=== PATIENT | female | born 1940 | race Asian ===

== ENCOUNTER 2017-06-26 08:13 | Emergency (ER) | payer OTHER ==
[~2017-06-26] VITALS: Ht 147.3 cm; Wt 52.0 kg
[~2017-06-26 08:13] MED LIST: FAMO-96 PO; GLIP-95 PO; HYDR-3498 PO; LEVO250T9 PO; LOSA25TA5 PO; METF850T PO; OMEP20CA9 PO; OMEP40CA6 PO; ONDA4TAB35 PO; ONDA4TAB8 PO; PIOG45TA6 PO; TRAM-40 PO
[2017-06-26 08:19] VITALS: Ht 147.3 cm; Wt 52.0 kg
[2017-06-26] MEDS ORDERED: SOD CHLORIDE 0.9% 500 ML IV STA (08:31)
[2017-06-26] MEDS ORDERED: OCTREOTIDE 50 MCG INJ SC STA (08:39)
[2017-06-26] MEDS ORDERED: DEXTROSE 50% 50 ML SYRINGE IV STA (08:39)
[2017-06-26] MEDS ORDERED: ONDANSETRON 4 MG INJ IV STA (08:55)
--- NOTE | 2017-06-26 09:09 | RADRPT ---
PROCEDURE: XR Chest. CLINICAL INDICATION: Altered Mental Status. Dyspnea. TECHNIQUE: Single frontal chest x-ray. COMPARISON: 02/07/2016 FINDINGS: The lungs are clear of acute infiltrates, edema, effusions, or masses. There is elevation of the rig ht hemidiaphragm. Calcific atherosclerosis of the aorta is present.. The cardiomediastinal silhouet te is unremarkable. There is an old healed fracture of the left clavicle. Cholecystectomy clips and internal biliary stent are again noted. Pneumobilia is also seen.. IMPRESSION: No acute cardiopulmonary disease. Elevated right hemidiaphragm. Status post cholecystectomy with internal biliary stent and pneumobilia. RPTAT: JJ .Gm Bingham MD, MD Date Time Electronically viewed and signed by .Gm Bingham MD, on 06/26/2017 09:09 .L/
[2017-06-26 09:23] LABS: BASOPHILS % 0.3 % (0.0-2.0); EOSINOPHILS % 0.4 % (0.0-7.0); HEMATOCRIT 41.7 % (37.0-47.0); HEMOGLOBIN 13.8 g/dl (12.0-16.0); LYMPHOCYTES # 1.9 10^3/ul (0.8-2.9); LYMPHOCYTES % 23.3 % (15.0-51.0); MEAN CORPUSCULAR HEMOGLOBIN 30.4 pg (29.0-33.0); MEAN CORPUSCULAR HGB CONC 33.1 g/dl (32.0-37.0); MEAN CORPUSCULAR VOLUME 91.9 fl (82.0-101.0); MONOCYTE # 0.4 10^3/ul (0.3-0.9); MONOCYTES % 5.5 % (0.0-11.0); NEUTROPHIL # 5.6 10^3/ul (1.6-7.5); NEUTROPHILS % 70.2 % (39.0-77.0); PLATELET COUNT 302 10^3/UL (140-415); RED BLOOD COUNT 4.54 10^6/ul (4.20-5.40)
[2017-06-26 09:28] LABS: ADD UMIC YES; UR ASCORBIC ACID NEGATIVE (NEGATIVE); UR BILIRUBIN (Dip) NEGATIVE (NEGATIVE); UR BLOOD (Dip) 1+ mg/dL (NEGATIVE); UR CLARITY CLEAR (CLEAR); UR COLOR STRAW (YELLOW); UR GLUCOSE (Dip) 3+ mg/dL (NEGATIVE); UR KETONES (Dip) NEGATIVE (NEGATIVE); UR LEUKOCYTE ESTERASE (Dip) TRACE Leu/ul (NEGATIVE); UR NITRITE (Dip) NEGATIVE (NEGATIVE); UR RBC 0 /HPF (0-5); UR SPECIFIC GRAVITY (Dip) 1.003 (1.003-1.030); UR TOTAL PROTEIN (Dip) NEGATIVE (NEGATIVE); UR UROBILINOGEN (Dip) NEGATIVE (NEGATIVE)
[2017-06-26 09:37] LABS: INR 0.87; PROTIME 11.8 Sec (12.2-14.2); PT RATIO 0.9
[2017-06-26 09:38] LABS: PARTIAL THROMBOPLASTIN TIME 30.9 Sec (25.0-35.0)
[2017-06-26 09:40] LABS: ALANINE AMINOTRANSFERASE 23 IU/L (13-69); ALBUMIN 4.7 g/dl (3.3-4.9); ALBUMIN/GLOBULIN RATIO 1.17; ALKALINE PHOSPHATASE 50 IU/L (42-121); ASPARTATE AMINO TRANSFERASE 27 IU/L (15-46); BILIRUBIN,INDIRECT 0.2 mg/dl (0-1.1); BILIRUBIN,TOTAL 0.2 mg/dl (0.2-1.3); BLOOD UREA NITROGEN 21 mg/dl (7-20); CALCIUM 9.6 mg/dl (8.4-10.2); CARBON DIOXIDE 27 mmol/L (21-31); CHLORIDE 101 mmol/L (97-110); CREATININE 0.81 mg/dl (0.44-1.00); GLUCOSE 66 mg/dl (70-220); SODIUM 147 mmol/L (135-144); TOTAL PROTEIN 8.7 g/dl (6.1-8.1)
[2017-06-26 09:51] LABS: ANION GAP 23 (8-16); POTASSIUM 4.2 mmol/L (3.5-5.1)
[2017-06-26 09:53] LABS: TROPONIN-I < 0.012 ng/ml (0.00-0.12)
--- NOTE | 2017-06-26 10:11 | RADRPT ---
PROCEDURE: CT Abdomen and Pelvis without intravenous contrast. CLINICAL INDICATION: Abdominal pain and vomiting. . TECHNIQUE: CT scan of the abdomen and pelvis without intravenous contrast was performed on a multi -slice CT scanner. Coronal and sagittal reformatted images were obtained from the axial source image s. Images were reviewed on a high-resolution PACS workstation. Total DLP = 296.8 mGy-cm. CTDIvol = 5.3 mGy. One or more of the following dose reduction techniques were used: Automated exposure control. Adjustment of the mA and/or kV according to patient size. Use of iterative reconstruction technique. COMPARISON: 05/05/2016 FINDINGS: CT abdomen and pelvis: The lung bases are clear. Calcified subcarinal lymph node is seen. The heart size is normal in size. The liver is normal in size and density. There is intra and extrahepatic biliary dilatation with pneumobilia unchanged. There is an internal biliary stent in place extending from the common bile d uct into the second portion of the duodenum. There is no definite common bile duct stone or pancreat ic mass is seen although sludge is seen at the distal common bile duct. The spleen is normal in siz e and homogeneous in density. The pancreas as visualized is normal. The gallbladder has been lauryn chuy. The adrenal glands are normal. The kidneys are symmetrically unremarkable. No urolithiasis, obstructive uropathy, or solid mass lesion is seen. There are bilateral renal cysts measuring up to 5.5 cm in the left kidney unchanged. The stomach is partially collapsed, but is grossly unremarkable. The small bowels are unremarkable. The colon and rectum are normal. There are a few scattered colonic diverticula. The appendix is nor mal. There is no evidence of appendicitis or diverticulitis. The uterus has been removed.. The blad kerline is normal. There is no abdominal or pelvic adenopathy, free fluid, free air, mass or mesenteric inflammation. The aorta is normal in caliber with calcific atherosclerosis . The osseous structures showing degen erative enthesopathy of the spine. There are no osteolytic or osteoblastic lesions identified.. The soft tissues are within normal limits. Lack of IV and oral contrast limits sensitivity of exam. IMPRESSION: 1. Intra and extrahepatic biliary dilatation with pneumobilia and internal biliary stent in place u nchanged since prior exam. 2. Bilateral renal cysts. 3. Colonic diverticulosis without diverticulitis. 4. Status post cholecystectomy and hysterectomy. 5. Otherwise unremarkable noncontrast CT abdomen and pelvis without acute pathology identified. RPTAT: JJ .Gm Bingham MD, Date Time Electronically viewed and signed by .Gm Bingham MD, on 06/26/2017 10:10 .L/
--- NOTE | 2017-06-26 10:12 | RADRPT ---
PROCEDURE: CT Brain without contrast. CLINICAL INDICATION: Altered Mental Status TECHNIQUE: A CT of the brain was performed on a [employer] 64-slice CT scanner utilizing axial imaging from the skull base through the vertex without IV contrast. Multiplanar reformatted images were made. Images were reviewed on a PACS workstation. The CTDIvol is 43.58 mGy and the DLP is 630 .2 mGycm. COMPARISON: CT brain 02/07/[address] brain 02/03/2014 FINDINGS: There is no acute intracranial hemorrhage, midline shift, or mass effect. No abnormal extra-axial f luid collection is seen. The carballo-white matter differentiation appears well preserved. There is stable mild to moderate diffuse cerebral volume loss, likely age-related. The previously seen focal encephalomalacia likely related to prior infarct in the anterior limb of t he left internal capsule is identified, but is less conspicuous on the current study as compared to prior studies. Scattered low attenuation in the periventricular deep white matter is nonspecific, but there compati ble with chronic small vessel ischemic white matter disease, unchanged. Bilateral basal ganglia calc ifications are unchanged and nonspecific. A tiny posterior inferior right cerebellar hemisphere chronic lacunar infarct is unchanged. Bilateral aphakia is again noted. The orbits, paranasal sinus, and mastoid air cells are partially i fritz. The imaged portions are otherwise grossly unremarkable. Intracranial calcific atherosclerotic disease is noted in the internal carotid arteries bilaterally. No acute fracture or suspicious osseous lesion is identified. IMPRESSION: 1. No evidence of acute intracranial pathology. 2. Stable tiny chronic lacunar infarct in the right posterior inferior cerebellar hemisphere. 3. Focal encephalomalacia in the anterior limb of the left internal capsule, less conspicuous as com pared to prior studies. 4. Stable mild to moderate diffuse cerebral volume loss, likely age-related. 5. Stable findings suggestive of mild chronic small vessel ischemic white matter disease. RPTAT: PP Physician Kofi Date Time Electronically viewed and signed by Physician Kofi on 06/26/2017 10:12 RC/
[2017-06-26] MEDS ORDERED: LANT3I SC (10:16)
[2017-06-26] MEDS ORDERED: ONDA4TAB14 PO (11:53)
--- NOTE | 2017-06-26 12:00 | ERA ---
ER Documentation Chief Complaint Date/Time DATE: 06/26/17 TIME: 11:56 Chief Complaint feels weak , dizziness , low blood glucose , abd pain , vomiting HPI This is a 76-year-old female diabetic who presents the emergency room with fatigue dizziness and vomiting. The patient has multiple complaints usually history is provided by daughter. The patient describes mild headache, abdominal pain that is cramping with associated nonbloody nonbilious emesis. Accu-Chek at home was in the 60s and she was given something to drink. No recent fevers or chills. The patient has had bladder infections in the past she denies any dysuria urgency or frequency. ROS All systems reviewed and are negative except as per history of present illness. Medications Home Meds Active Scripts Ondansetron (Ondansetron Odt) 4 Mg Tab.rapdis, 4 MG PO Q6H Y for NAUSEA AND/OR VOMITING, #30 TAB Prov:JOSE SALINAS MD 06/26/17 Reported Medications Insulin Glargine* (Lantus*) 100 Unit/Ml Soln, 14 UNIT SC DAILY, #1 VIAL 06/26/17 Glipizide* (Glipizide*) 10 Mg Tablet, 10 MG PO AC BREAKFAST BEDTIME, TAB 01/14/15 Omeprazole* (Prilosec*) 20 Mg Capsule.dr, 20 MG PO DAILY, CAP 10/17/14 Losartan Potassium* (Losartan Potassium*) 25 Mg Tablet, 25 MG PO DAILY, TAB 10/17/14 Pioglitazone Hcl* (Actos*) 45 Mg Tablet, 45 MG PO DAILY, TAB 10/17/14 Metformin Hcl* (Metformin Hcl*) 850 Mg Tablet, 850 MG PO BID, TAB 10/17/14 Discontinued Scripts Ondansetron Hcl* (Zofran*) 4 Mg Tablet, 4 MG PO Q8H Y for NAUSEA AND/OR VOMITING , #12 TAB Prov:MIRELA CASSIDY DO 05/05/16 Famotidine* (Pepcid*) 20 Mg Tablet, 20 MG PO BID for 14 Days, TAB Prov:MIRELA CASSIDY DO 05/05/16 Tramadol Hcl* (Ultram*) 50 Mg Tablet, 50 MG PO Q6H Y for PAIN, #14 TAB Prov:PITER ROBERTS DO 02/20/16 Omeprazole* (Omeprazole*) 40 Mg Capsule.dr, 40 MG PO DAILY, #30 CAP Prov:PITER ROBERTS DO 02/20/16 Ondansetron Hcl* (Zofran* ODT) 4 mg -ODT Tab.disper, 4 MG PO Q6 Y for NAUSEA AND /OR VOMITING, #10 TAB Prov:PITER ROBERTS DO 02/20/16 Hydrocodone Bit-Acetaminophen* (Martin*) 5-325 Mg Tab, 1 TAB PO q6h Y for PAIN, # 10 TAB Prov:PATEL OLSEN BRIM FLEXER 02/09/16 Levofloxacin* (Levofloxacin*) 250 Mg Tablet, 250 MG PO DAILY for 3 Days, TAB Prov:PATEL OLSEN BRIM FLEXER 02/09/16 Allergies Allergies: Coded Allergies: No Known Allergy (Unverified , 06/26/17) PMhx/Soc History of Surgery: Yes (cholecystectomy, hysterectomy) Anesthesia Reaction: No Hx Neurological Disorder: No Hx Respiratory Disorders: No Hx Cardiac Disorders: No Hx Psychiatric Problems: No Hx Miscellaneous Medical Probl: Yes (dm) Hx Alcohol Use: No Hx Substance Use: No Hx Tobacco Use: No Smoking Status: Never smoker FmHx Family History: diabetes Physical Exam Vitals Vital Signs Date Time Temp Pulse Resp B/P Pulse Ox O2 Delivery O2 Flow Rate FiO2 06/26/17 08:19 97.8 87 18 149/67 99 Physical Exam General: Thin female, no significant distress Head: Normocephalic, atraumatic. Eyes: Pupils equally reactive, EOM intact ENT: Moist mucous membranes Neck: Supple, no lymphadenopathy Respiratory: Lungs clear bilaterally, no distress Cardiovascular: RRR, no murmurs, rubs, or gallops Abdominal: Soft, non-tender, non-distended, no peritoneal signs : Deferred MSK: No edema, no unilateral swelling, 5/5 strength Neurologic: Alert and oriented, moving all extremities, normal speech, no focal weakness, no cerebellar signs Skin: No rash Psych: Normal mood Result Diagram: 06/26/17 0900 06/26/17 0900 Results 24 hrs Laboratory Tests Test 06/26/17 08:31 06/26/17 09:00 06/26/17 09:21 06/26/17 10:27 Bedside Glucose 69mg/dL 201mg/dL 175mg/dL White Blood Count 8.010^3/ul Red Blood Count 4.5410^6/ul Hemoglobin 13.8g/dl Hematocrit 41.7% Mean Corpuscular Volume 91.9fl Mean Corpuscular Hemoglobin 30.4pg Mean Corpuscular Hemoglobin Concent 33.1g/dl Red Cell Distribution Width 13.0% Platelet Count 98274^3/UL Mean Platelet Volume 10.0fl Neutrophils % 70.2% Lymphocytes % 23.3% Monocytes % 5.5% Eosinophils % 0.4% Basophils % 0.3% Nucleated Red Blood Cells % 0.0/100WBC Neutrophils # 5.610^3/ul Lymphocytes # 1.910^3/ul Monocytes # 0.410^3/ul Eosinophils # 0.010^3/ul Basophils # 0.010^3/ul Nucleated Red Blood Cells # 0.010^3/ul Prothrombin Time 11.8Sec Prothrombin Time Ratio 0.9 INR International Normalized Ratio 0.87 Activated Partial Thromboplast Time 30.9Sec Urine Color STRAW Urine Clarity CLEAR Urine pH 6.0 Urine Specific [place] 1.003 Urine Ketones NEGATIVEmg/dL Urine Nitrite NEGATIVEmg/dL Urine Bilirubin NEGATIVEmg/dL Urine Urobilinogen NEGATIVEmg/dL Urine Leukocyte Esterase TRACELeu/ul Urine Microscopic RBC 0/HPF Urine Microscopic WBC 2/HPF Urine Hemoglobin 1+mg/dL Urine Glucose 3+mg/dL Urine Total Protein NEGATIVEmg/dl Sodium Level 147mmol/L Potassium Level 4.2mmol/L Chloride Level 101mmol/L Carbon Dioxide Level 27mmol/L Anion Gap 23 Blood Urea Nitrogen 21mg/dl Creatinine 0.81mg/dl Glucose Level 66mg/dl Calcium Level 9.6mg/dl Total Bilirubin 0.2mg/dl Direct Bilirubin 0.00mg/dl Indirect Bilirubin 0.2mg/dl Aspartate Amino Transf (AST/SGOT) 27IU/L Alanine Aminotransferase (ALT/SGPT) 23IU/L Alkaline Phosphatase 50IU/L Troponin I < 0.012ng/ml Total Protein 8.7g/dl Albumin 4.7g/dl Globulin 4.00g/dl Albumin/Globulin Ratio 1.17 Test 06/26/17 11:29 Bedside Glucose 102mg/dL Current Medications Medications (Trade) Dose Ordered Sig/Krystal Route PRN Reason Start Time Stop Time Status Last Admin Dose Admin Sodium Chloride (NS) 500 ml @ 500 mls/hr Q1H STAT IV 06/26/17 08:31 06/26/17 09:30 DC 06/26/17 08:42 Dextrose (D50w Syringe) 50 ml ONCE STAT IV 06/26/17 08:39 06/26/17 08:43 DC 06/26/17 08:53 Octreotide Acetate (Sandostatin) 50 mcg ONCE STAT SC 06/26/17 08:39 06/26/17 08:43 DC 06/26/17 10:16 Ondansetron HCl (Zofran Inj) 4 mg ONCE STAT IV 06/26/17 08:55 06/26/17 08:57 DC 06/26/17 09:05 Procedures/MDM EKG, MONITORS, & DIAGNOSTIC IMAGING: EKG: I reviewed and interpreted a 12-lead EKG. Rhythm: Normal sinus rhythm Ectopy: None Intervals: No abnormalities ST segments: No elevations or depressions T waves: No contiguous inversions CTB IMPRESSION: 1. No evidence of acute intracranial pathology. 2. Stable tiny chronic lacunar infarct in the right posterior inferior cerebellar hemisphere. 3. Focal encephalomalacia in the anterior limb of the left internal capsule, less conspicuous as compared to prior studies. 4. Stable mild to moderate diffuse cerebral volume loss, likely age-related. 5. Stable findings suggestive of mild chronic small vessel ischemic white matter disease. RPTAT: PP CT a/p IMPRESSION: 1. Intra and extrahepatic biliary dilatation with pneumobilia and internal biliary stent in place unchanged since prior exam. 2. Bilateral renal cysts. 3. Colonic diverticulosis without diverticulitis. 4. Status post cholecystectomy and hysterectomy. 5. Otherwise unremarkable noncontrast CT abdomen and pelvis without acute pathology identified. RPTAT: PAMELA 'Chest x-ray: I reviewed and interpreted a 1 view of the chest Mediastinum: No enlargement Cardiac silhouette: No cardiomegaly Airspace: Clear lung waters bilaterally without evidence of pneumothorax Bones: No evidence of fracture LAB INTERPRETATION: The patient has no leukocytosis,, stable serial glucose values MEDICAL DECISION MAKING: The patient presents with hypoglycemia, multiple complaints including headache abdominal pain and nausea and vomiting. Unclear etiology, the patient does take sulfonylurea and Lantus and took the doses this morning. For this reason she requires close observation in the emergency room. Given her age I believe laboratory testing and CT imaging of the head and abdomen and pelvis would be most reasonable. ER COURSE: The patient continues to be well-appearing in the emergency department. The patient was given a complex carbohydrate meal she was given octreotide. The patient's Accu-Chek initially was 201 and after an amp and has trended down to 100 but has been stable for at least 3 hours. The patient was given a p.o. challenge and tolerated this well. She was observed with serial abdominal exams that are again benign. I discussed inpatient versus outpatient management. The patient and family feel comfortable going home with return precautions discussed and understood. The daughter can check the glucose at home and was advised that if is low to call [phone] and return to the emergency department. I kept the patient and/or family informed of laboratory and diagnostic imaging results throughout the emergency room course. DISPOSITION PLAN: We discussed follow up with the patient's primary care doctor within 24 to 48 hours as needed. We also discussed return to the emergency room for worsening symptoms or worsening condition. Outpatient referral: [None required] Discharge Medications: Zofran Departure Diagnosis: Primary Impression: Nausea and vomiting Qualified Code: R11.2 - Nausea and vomiting, intractability of vomiting not specified, unspecified vomiting type Additional Impressions: Hyperglycemia Generalized abdominal pain Condition: Stable Patient Instructions: Nausea and Vomiting-Adult Additional Instructions: Call your primary care doctor TOMORROW for an appointment during the next 2-3 days.See the doctor sooner or return here if your condition worsens before your appointment time. JOSE SALINAS MD Jun 26, 2017 12:00
[2017-06-26 12:52] VITALS: BP 123/68; PULSE 74; RESP 16
== END 2017-06-26 13:05 | disposition home or self-care (01) ==
LOC: E/R 08:13
DX: R11.2 Nausea with vomiting, unspecified (principal); E11.65 Type 2 diabetes mellitus with hyperglycemia; R10.84 Generalized abdominal pain; R41.82 Altered mental status, unspecified; Z79.4 Long term (current) use of insulin; Z79.84 Long term (current) use of oral hypoglycemic drugs
CPT/HCPCS: 36415; 70450; 71010; 74176; 80053; 81001; 82962; 84484; 85025; 85610; 85730; 93005; 96372; 96374; 96375; J2354; J2405; J7040; Z7502; Z7610

== ENCOUNTER 2017-07-31 13:16 | Emergency (ER) | payer OTHER ==
[~2017-07-31] VITALS: Ht 157.5 cm; Wt 55.0 kg
[~2017-07-31 13:16] MED LIST changes: -FAMO-96 PO; -HYDR-3498 PO; +LANT3I SC; -LEVO250T9 PO; -OMEP40CA6 PO; +ONDA4TAB14 PO; -ONDA4TAB35 PO; -ONDA4TAB8 PO; -TRAM-40 PO
[2017-07-31 13:20] VITALS: Ht 157.5 cm; Wt 55.0 kg
[2017-07-31] MEDS ORDERED: SOD CHLORIDE 0.9% 1,000 ML IV STA (16:56)
[2017-07-31] MEDS ORDERED: ONDANSETRON 4 MG INJ IV STA (16:56)
--- NOTE | 2017-07-31 17:13 | RADRPT ---
PROCEDURE: XR Chest. CLINICAL INDICATION: Abdominal pain and weakness TECHNIQUE: Single frontal view of the chest was obtained COMPARISON: 06/26/2017 FINDINGS: No pleural effusion or pneumothorax. No consolidation. Staple cardiomediastinal silhouette. No acute osseous abnormality. Fracture deformity of the left clavicle. IMPRESSION: No acute cardiopulmonary disease. RPTAT: EE Jannet Nuñez Physician Date Time Electronically viewed and signed by Jannet Nuñez Physician on 07/31/2017 17:13 /
[2017-07-31] MEDS ORDERED: ASPI-664 PO (17:15)
[2017-07-31] MEDS ORDERED: METF1000 PO (17:17)
[2017-07-31] MEDS ORDERED: ATOR10TA65 PO (17:22)
[2017-07-31 17:40] LABS: BASOPHILS % 0.3 % (0.0-2.0); EOSINOPHILS # 0.1 10^3/ul (0.0-0.5); EOSINOPHILS % 0.9 % (0.0-7.0); HEMATOCRIT 41.2 % (37.0-47.0); HEMOGLOBIN 13.1 g/dl (12.0-16.0); LYMPHOCYTES # 1.9 10^3/ul (0.8-2.9); LYMPHOCYTES % 29.3 % (15.0-51.0); MEAN CORPUSCULAR HEMOGLOBIN 29.6 pg (29.0-33.0); MEAN CORPUSCULAR HGB CONC 31.8 g/dl (32.0-37.0); MEAN PLATELET VOLUME 9.5 fl (7.4-10.4); MONOCYTE # 0.4 10^3/ul (0.3-0.9); MONOCYTES % 5.6 % (0.0-11.0); NEUTROPHILS % 63.6 % (39.0-77.0); PLATELET COUNT 311 10^3/UL (140-415); RED BLOOD COUNT 4.43 10^6/ul (4.20-5.40); RED CELL DISTRIBUTION WIDTH 13.9 % (11.5-14.5); WHITE BLOOD COUNT 6.6 10^3/ul (4.8-10.8)
[2017-07-31 17:57] LABS: ALANINE AMINOTRANSFERASE 24 IU/L (13-69); ALBUMIN 4.2 g/dl (3.3-4.9); ALBUMIN/GLOBULIN RATIO 1.02; ALKALINE PHOSPHATASE 43 IU/L (42-121); ANION GAP 20 (8-16); ASPARTATE AMINO TRANSFERASE 24 IU/L (15-46); BILIRUBIN,INDIRECT 0.3 mg/dl (0-1.1); BILIRUBIN,TOTAL 0.3 mg/dl (0.2-1.3); BLOOD UREA NITROGEN 25 mg/dl (7-20); CALCIUM 9.6 mg/dl (8.4-10.2); CARBON DIOXIDE 27 mmol/L (21-31); CHLORIDE 101 mmol/L (97-110); GLUCOSE 90 mg/dl (70-220); POTASSIUM 5.1 mmol/L (3.5-5.1); SODIUM 143 mmol/L (135-144); TOTAL PROTEIN 8.3 g/dl (6.1-8.1)
[2017-07-31 18:17] LABS: TROPONIN-I < 0.012 ng/ml (0.00-0.12)
[2017-07-31] MEDS ORDERED: SOD CHLORIDE 0.9% 1,000 ML IV ONE (18:30)
[2017-07-31 19:46] LABS: ADD UMIC YES; UR ASCORBIC ACID 40 mg/dL (NEGATIVE); UR BILIRUBIN (Dip) NEGATIVE (NEGATIVE); UR BLOOD (Dip) NEGATIVE (NEGATIVE); UR CLARITY CLEAR (CLEAR); UR COLOR YELLOW (YELLOW); UR GLUCOSE (Dip) NEGATIVE (NEGATIVE); UR KETONES (Dip) NEGATIVE (NEGATIVE); UR LEUKOCYTE ESTERASE (Dip) TRACE Leu/ul (NEGATIVE); UR NITRITE (Dip) NEGATIVE (NEGATIVE); UR RBC 3 /HPF (0-5); UR TOTAL PROTEIN (Dip) NEGATIVE (NEGATIVE); UR UROBILINOGEN (Dip) NEGATIVE (NEGATIVE)
--- NOTE | 2017-07-31 19:50 | RADRPT ---
PROCEDURE: XR Abdomen. CLINICAL INDICATION: Epigastric pain. TECHNIQUE: AP abdomen x-ray. COMPARISON: CT examination of the abdomen and pelvis dated 06/26/2017. FINDINGS: Biliary stent is seen over the right abdomen. The proximal stent is likely present in the distal co mmon bile duct in the distal stent is likely present within the duodenum. These findings are compati ble with CT examination the abdomen and pelvis dated 06/26/2017. Stent position cannot be further e valuated on the present series. Pneumobilia again seen, with the air distended common bile duct medina uring up to about 25 mm. The bowel gas pattern is normal. There is no evidence of obstruction. There are no abnormal calcific ations overlying the urinary tracts. The osseus structures are unremarkable. IMPRESSION: 1. Pneumobilia and biliary stent again seen, similar in appearance to CT examination dated 06/26/20 17. 2. Otherwise, nonobstructive and nonspecific bowel gas pattern. RPTAT: UU Physician Lloyd Date Time Electronically viewed and signed by Physician Lloyd on 07/31/2017 19:50 RS/
--- NOTE | 2017-07-31 21:50 | ERD ---
ER Documentation Chief Complaint Date/Time DATE: 07/31/17 TIME: 21:43 Chief Complaint Complains of weakness x 4 days HPI 76-year-old female comes emergency room with her daughter for 3 days of increasing mild generalized weakness with decreased appetite. She is unaware of any dysuria and has no chest pain shortness of breath nausea vomiting fever or chills. No trauma ROS All systems reviewed and are negative except as per history of present illness. Medications Home Meds Reported Medications Atorvastatin Calcium (Atorvastatin Calcium) 10 Mg Tablet, 10 MG PO QHS, #30 TAB 07/31/17 Metformin Hcl* (Metformin Hcl*) 1,000 Mg Tablet, 1000 MG PO WITH BREAKFAST DINNE , #60 TAB 07/31/17 Aspirin* (Aspirin* EC) 81 Mg Tablet.dr, 81 MG PO DAILY, TAB 07/31/17 Insulin Glargine* (Lantus*) 100 Unit/Ml Soln, 14 UNIT SC DAILY, #1 VIAL 06/26/17 Glipizide* (Glipizide*) 10 Mg Tablet, 10 MG PO AC BREAKFAST BEDTIME, TAB 01/14/15 Omeprazole* (Prilosec*) 20 Mg Capsule.dr, 20 MG PO DAILY, CAP 10/17/14 Pioglitazone Hcl* (Actos*) 45 Mg Tablet, 45 MG PO DAILY, TAB 10/17/14 Discontinued Reported Medications Losartan Potassium* (Losartan Potassium*) 25 Mg Tablet, 25 MG PO DAILY, TAB 10/17/14 Metformin Hcl* (Metformin Hcl*) 850 Mg Tablet, 850 MG PO BID, TAB 10/17/14 Discontinued Scripts Ondansetron (Ondansetron Odt) 4 Mg Tab.rapdis, 4 MG PO Q6H Y for NAUSEA AND/OR VOMITING, #30 TAB Prov:JOSE SALINAS MD 06/26/17 Allergies Allergies: Coded Allergies: No Known Allergy (Unverified , 07/31/17) PMhx/Soc History of Surgery: Yes (cholecystectomy, hysterectomy) Anesthesia Reaction: No Hx Neurological Disorder: No Hx Respiratory Disorders: No Hx Cardiac Disorders: No Hx Psychiatric Problems: No Hx Miscellaneous Medical Probl: Yes (dm) Hx Alcohol Use: No Hx Substance Use: No Hx Tobacco Use: No Smoking Status: Never smoker Physical Exam Vitals Vital Signs Date Time Temp Pulse Resp B/P Pulse Ox O2 Delivery O2 Flow Rate FiO2 8/31/17 21:19 98.0 70 20 132/70 98 07/31/17 18:00 98.0 68 20 110/77 98 07/31/17 13:20 98.7 83 20 108/62 98 Physical Exam Const: [] No distress Head: Atraumatic Eyes: Normal Conjunctiva ENT: Normal External Ears, Nose and Mouth. Neck: Full range of motion..~ No meningismus. Resp: Clear to auscultation bilaterally Cardio: Regular rate and rhythm, no murmurs Abd: Soft, non tender, non distended. Normal bowel sounds Skin: No petechiae or rashes Back: No midline or flank tenderness Ext: No cyanosis, or edema Neur: Awake and alertAnd oriented 3, no focal deficits Psych: Normal Mood and Affect Result Diagram: 07/31/17 1725 07/31/17 1725 Results 24 hrs Laboratory Tests Test 07/31/17 17:25 07/31/17 19:35 White Blood Count 6.610^3/ul Red Blood Count 4.4310^6/ul Hemoglobin 13.1g/dl Hematocrit 41.2% Mean Corpuscular Volume 93.0fl Mean Corpuscular Hemoglobin 29.6pg Mean Corpuscular Hemoglobin Concent 31.8g/dl Red Cell Distribution Width 13.9% Platelet Count 13299^3/UL Mean Platelet Volume 9.5fl Neutrophils % 63.6% Lymphocytes % 29.3% Monocytes % 5.6% Eosinophils % 0.9% Basophils % 0.3% Nucleated Red Blood Cells % 0.0/100WBC Neutrophils # (Manual) 4.210^3/ul Lymphocytes # 1.910^3/ul Monocytes # 0.410^3/ul Eosinophils # 0.110^3/ul Basophils # 0.010^3/ul Nucleated Red Blood Cells # 0.010^3/ul Sodium Level 143mmol/L Potassium Level 5.1mmol/L Chloride Level 101mmol/L Carbon Dioxide Level 27mmol/L Anion Gap 20 Blood Urea Nitrogen 25mg/dl Creatinine 0.90mg/dl Glucose Level 90mg/dl Lactic Acid Level 3.6mmol/L Calcium Level 9.6mg/dl Total Bilirubin 0.3mg/dl Direct Bilirubin 0.00mg/dl Indirect Bilirubin 0.3mg/dl Aspartate Amino Transf (AST/SGOT) 24IU/L Alanine Aminotransferase (ALT/SGPT) 24IU/L Alkaline Phosphatase 43IU/L Troponin I < 0.012ng/ml Total Protein 8.3g/dl Albumin 4.2g/dl Globulin 4.10g/dl Albumin/Globulin Ratio 1.02 Urine Color YELLOW Urine Clarity CLEAR Urine pH 5.0 Urine Specific [place] 1.020 Urine Ketones NEGATIVEmg/dL Urine Nitrite NEGATIVEmg/dL Urine Bilirubin NEGATIVEmg/dL Urine Urobilinogen NEGATIVEmg/dL Urine Leukocyte Esterase TRACELeu/ul Urine Microscopic RBC 3/HPF Urine Microscopic WBC 10/HPF Urine Hemoglobin NEGATIVEmg/dL Urine Glucose NEGATIVEmg/dL Urine Total Protein NEGATIVEmg/dl Current Medications Medications (Trade) Dose Ordered Sig/Krystal Route PRN Reason Start Time Stop Time Status Last Admin Dose Admin Sodium Chloride (NS) 1,000 ml @ 1,000 mls/hr Q1H STAT IV 07/31/17 16:56 07/31/17 17:55 DC 07/31/17 17:25 Ondansetron HCl 4 mg 4 mg ONCE STAT IV 07/31/17 16:56 07/31/17 16:58 DC 07/31/17 17:25 Sodium Chloride 1,000 ml @ 1,000 mls/hr Q1H ONCE IV 07/31/17 18:30 07/31/17 19:29 DC 07/31/17 20:15 Cefepime HCl (Maxipime 1gm/50 ml (Pmx)) 50 ml @ 100 mls/hr ONCE ONCE IVPB 07/31/17 22:00 07/31/17 22:29 Procedures/MDM Weakness and dehydration is likely secondary to UTI. Elevated lactic acid without elevated creatinine. Patient was hydrated 2 L of normal saline and given a gram of cefepime as urinalysis positive for leukocyte esterase and has 10 white blood cells from a cath specimen. Urine culture was taken to confirm this. No signs of cardiac dysfunction or electrolyte abnormalities.Daughter in patient for her to go home this evening. Able to able to care for patient at home. Patient's vital signs are stable respect this decision. I am going to discharge with Levaquin for 3 days as well as Zofran ODT. EKG interpretation: Normal sinus rhythm rate of 69, normal axis, no ST or T- wave changes concerning for acute ischemia. Normal EKG Chest x-ray interpretation: See no acute process, no infiltrates, no pneumothorax, no fractures, no pulmonary edema X-ray abdomen: I see no acute process. Pneumobilia similar to prior exam, no obstruction, no free air, no fractures. Departure Diagnosis: Primary Impression: Urinary tract infection Additional Impression: Dehydration Condition: Stable CECI LLOYD DO Jul 31, 2017 21:50
[2017-07-31] MEDS ORDERED: CEFEPIME 1GM/50 ML (PMX) 50 ML IVPB ONE (22:00)
[2017-07-31] MEDS ORDERED: LEVO500T72 PO (22:01)
[2017-07-31] MEDS ORDERED: ONDA4TAB11 PO (22:01)
[2017-07-31 22:34] VITALS: BP 118/68; PULSE 64; RESP 20; TEMP 97.3
== END 2017-07-31 22:37 | disposition home or self-care (01) ==
LOC: E/R 13:16
DX: N39.0 Urinary tract infection, site not specified (principal); E86.0 Dehydration; E11.9 Type 2 diabetes mellitus without complications; Z79.4 Long term (current) use of insulin; Z79.82 Long term (current) use of aspirin; Z79.84 Long term (current) use of oral hypoglycemic drugs
CPT/HCPCS: 36415; 71010; 74010; 80053; 81001; 83605; 84484; 85025; 87086; 93005; 96374; 96375; J7030; Z7502

== ENCOUNTER 2017-08-07 16:40 | Observation (INO) | payer OTHER ==
[~2017-08-07] VITALS: Ht 152.4 cm; Wt 55.0 kg
[~2017-08-07 16:40] MED LIST changes: +ASPI-664 PO; +ATOR10TA65 PO; +LEVO500T72 PO; -LOSA25TA5 PO; +METF1000 PO; -METF850T PO; +ONDA4TAB11 PO; -ONDA4TAB14 PO
[2017-08-07] MEDS ORDERED: ONDANSETRON 4 MG INJ IV STA (19:20)
[2017-08-07] MEDS ORDERED: FAMOTIDINE 20 MG INJ IV STA (19:20)
[2017-08-07] MEDS ORDERED: SOD CHLORIDE 0.9% 500 ML IV STA (19:20)
--- NOTE | 2017-08-07 19:32 | ERD ---
ER Documentation Chief Complaint Date/Time DATE: 08/07/17 TIME: 19:30 Chief Complaint VOMITING,ABDOMINAL PAIN,POOR APPETITE X 3DAYS HPI Patient is a 76-year-old female recently discharged from the hospital with UTI and on antibiotics who presents to the ER with gradual onset, intermittent, moderate nonbloody nonbilious vomiting for 2-3 days. Her family reports that she has not been eating well since she left the hospital and has had constipation. She has had numerous episodes of vomiting in the last 2-3 days. She denies fever, headache, abdominal pain. ROS All systems reviewed and are negative except as per history of present illness. Medications Home Meds Reported Medications Pioglitazone Hcl* (Pioglitazone Hcl*) 15 Mg Tablet, 15 MG PO DAILY, TAB 08/07/17 Glipizide* (Glipizide*) 5 Mg Tablet, 5 MG PO AC BREAKFAST DINNER, TAB 08/07/17 Metoprolol Succinate* (Toprol XL*) 25 Mg Tab.sr.24h, 25 MG PO DAILY, #30 TAB 08/07/17 [Basaglar 100/Ml ] No Conflict Check, 14 UNITS SQ DAILY KWIKPEN 08/07/17 Atorvastatin Calcium (Atorvastatin Calcium) 10 Mg Tablet, 10 MG PO QHS, #30 TAB 07/31/17 Metformin Hcl* (Metformin Hcl*) 1,000 Mg Tablet, 1000 MG PO WITH BREAKFAST DINNE , #60 TAB 07/31/17 Aspirin* (Aspirin* EC) 81 Mg Tablet.dr, 81 MG PO DAILY, TAB 07/31/17 Omeprazole* (Prilosec*) 20 Mg Capsule.dr, 20 MG PO DAILY for NEEDED, CAP 10/17/14 Discontinued Reported Medications Insulin Glargine* (Lantus*) 100 Unit/Ml Soln, 14 UNIT SC DAILY, #1 VIAL 06/26/17 Glipizide* (Glipizide*) 10 Mg Tablet, 10 MG PO AC BREAKFAST BEDTIME, TAB 01/14/15 Pioglitazone Hcl* (Actos*) 45 Mg Tablet, 45 MG PO DAILY, TAB 10/17/14 Losartan Potassium* (Losartan Potassium*) 25 Mg Tablet, 25 MG PO DAILY, TAB 10/17/14 Metformin Hcl* (Metformin Hcl*) 850 Mg Tablet, 850 MG PO BID, TAB 10/17/14 Discontinued Scripts Ondansetron (Zofran Odt) 4 Mg Tab.rapdis, 4 MG PO Q6, #10 Prov:CECI LLOYD DO 07/31/17 Levofloxacin* (Levaquin*) 500 Mg Tablet, 500 MG PO DAILY for 7 Days, TAB Prov:CECI LLOYD DO 07/31/17 Ondansetron (Ondansetron Odt) 4 Mg Tab.rapdis, 4 MG PO Q6H Y for NAUSEA AND/OR VOMITING, #30 TAB Prov:JOSE SALINAS MD 06/26/17 Allergies Allergies: Coded Allergies: No Known Allergy (Unverified , 08/07/17) PMhx/Soc Past medical history: Hypertension, diabetes Past surgical history: Hysterectomy, cholecystectomy Social history: Denies tobacco or alcohol History of Surgery: Yes (cholecystectomy, hysterectomy) Anesthesia Reaction: No Hx Neurological Disorder: No Hx Respiratory Disorders: No Hx Cardiac Disorders: No Hx Psychiatric Problems: No Hx Miscellaneous Medical Probl: Yes (dm) Hx Alcohol Use: No Hx Substance Use: No Hx Tobacco Use: No FmHx Family History: diabetes, No coronary disease Physical Exam Vitals Vital Signs Date Time Temp Pulse Resp B/P Pulse Ox O2 Delivery O2 Flow Rate FiO2 08/07/17 21:34 98.6 80 17 110/57 95 Room Air 08/07/17 19:39 98.6 80 17 105/57 100 Room Air 08/07/17 16:46 98.5 86 18 110/58 98 Physical Exam Const: Alert, no acute distress Head: Atraumatic Eyes: Normal Conjunctiva, No pallor, no icterus ENT: Normal External Ears, Nose and Mouth.Mucous membranes moist Neck: Full range of motion..~ No meningismus. Resp: Clear to auscultation bilaterally, No wheezes, no rales Cardio: Regular rate and rhythm, no murmurs Abd: Soft, non tender, non distended. Skin: No petechiae or rashes Back: No midline or flank tenderness Ext: No cyanosis, or edema Neur: Awake and alert, Cranial nerves II through XII intact bilaterally, strength and sensation full in 4 extremities. Psych: Normal Mood and Affect Result Diagram: 08/07/17 1930 08/07/172105 Results 24 hrs Laboratory Tests Test 08/07/17 19:30 9/7/17 20:58 08/07/17 21:06 08/07/17 21:16 White Blood Count 7.410^3/ul Red Blood Count 4.1910^6/ul Hemoglobin 12.7g/dl Hematocrit 38.8% Mean Corpuscular Volume 92.6fl Mean Corpuscular Hemoglobin 30.3pg Mean Corpuscular Hemoglobin Concent 32.7g/dl Red Cell Distribution Width 13.7% Platelet Count 61026^3/UL Mean Platelet Volume 9.6fl Neutrophils % 61.8% Lymphocytes % 30.2% Monocytes % 6.7% Eosinophils % 0.8% Basophils % 0.1% Nucleated Red Blood Cells % 0.0/100WBC Neutrophils # (Manual) 4.510^3/ul Lymphocytes # 2.210^3/ul Monocytes # 0.510^3/ul Eosinophils # 0.110^3/ul Basophils # 0.010^3/ul Nucleated Red Blood Cells # 0.010^3/ul Urine Color KIERSTEN Urine Clarity SLIGHTLY CLOUDY Urine pH 5.0 Urine Specific [place] 1.029 Urine Ketones NEGATIVEmg/dL Urine Nitrite NEGATIVEmg/dL Urine Bilirubin NEGATIVEmg/dL Urine Urobilinogen 1+mg/dL Urine Leukocyte Esterase TRACELeu/ul Urine Microscopic RBC 1/HPF Urine Microscopic WBC 10/HPF Urine Squamous Epithelial Cells FEW/HPF Urine Mucus MANY/HPF Urine Hemoglobin NEGATIVEmg/dL Urine Glucose NEGATIVEmg/dL Urine Total Protein 1+mg/dl Bedside Glucose 26mg/dL 137mg/dL Sodium Level 135mmol/L Potassium Level 3.7mmol/L Chloride Level 103mmol/L Carbon Dioxide Level 25mmol/L Anion Gap 11 Blood Urea Nitrogen 23mg/dl Creatinine 0.94mg/dl Glucose Level 170mg/dl Calcium Level 8.4mg/dl Test 08/07/17 21:58 Bedside Glucose 162mg/dL Current Medications Medications (Trade) Dose Ordered Sig/Krystal Route PRN Reason Start Time Stop Time Status Last Admin Dose Admin Sodium Chloride (NS) 500 ml @ 500 mls/hr Q1H STAT IV 08/07/17 19:20 08/07/17 20:19 DC 08/07/17 19:32 Ondansetron HCl (Zofran Inj) 4 mg ONCE STAT IV 08/07/17 19:20 08/07/17 19:21 DC 08/07/17 19:33 Famotidine (Pepcid Iv) 20 mg ONCE STAT IV 08/07/17 19:20 08/07/17 19:21 DC 08/07/17 19:33 Octreotide Acetate (Sandostatin) 100 mcg ONCE ONCE SC 08/07/17 21:00 08/07/17 21:00 DC Octreotide Acetate (Sandostatin) 50 mcg ONCE ONCE IV 08/07/17 21:00 08/07/17 21:01 DC 08/07/17 21:25 Dextrose (D50w Syringe) 50 ml STK-MED ONCE .ROUTE 08/07/17 20:55 08/07/17 20:56 DC Dextrose (D50w Syringe) 50 ml ONCE ONCE IV 08/07/17 21:00 08/07/17 21:23 DC 08/07/17 21:25 Sodium Chloride 1710 ml 1,710 ml BOLUS OVER 2 HOURS ONCE IV* 08/07/17 22:10 08/07/17 22:15 DC Ceftriaxone Sodium (Rocephin) 50 ml @ 100 mls/hr ONCE ONCE IVPB 08/07/17 22:15 08/07/17 22:44 DC Ondansetron HCl (Zofran Inj) 4 mg ER BRIDGE PRN IV NAUSEA AND/OR VOMITING 08/07/17 23:00 08/08/17 22:59 Acetaminophen (Tylenol Tab) 650 mg ER BRIDGE PRN PO MILD PAIN/FEVER 08/07/17 23:00 08/08/17 22:59 Procedures/MDM MDM: Patient is a 76-year-old female who presents to the ER with vomiting for 2 days. She was found to have a blood sugar in the 20s. She was given IV dextrose, and was also given IV octreotide due to being on a sulfonylurea. The patient is also on insulin. He is able to tolerate oral intake, and her glucose stabilized. Additional workup revealed a possible UTI. She had a benign abdominal exam and no signs of central vomiting such as neurologic deficit or headache. Blood and urine cultures were sent and a lactate will be checked. She has low diastolic blood pressure but normal map and systolic blood pressure. She was given IV antibiotics and fluids. She will be admitted to observation for monitoring of glucose until stabilized and for further infectious workup. Departure Diagnosis: Primary Impression: Hypoglycemia Additional Impressions: Urinary tract infection Urinary tract infection type: site unspecified Hematuria presence: without hematuria Qualified Code: N39.0 - Urinary tract infection without hematuria, site unspecified Vomiting Vomiting type: unspecified Vomiting Intractability: non-intractable Nausea presence: with nausea Qualified Code: R11.2 - Non-intractable vomiting with nausea, unspecified vomiting type Condition: CESAR Heath MD Aug 07, 2017 19:32
[2017-08-07] MEDS ORDERED: BASAGLAR SQ (19:52)
[2017-08-07] MEDS ORDERED: METO25TA7 PO (19:52)
[2017-08-07] MEDS ORDERED: [UNRECOGNIZED DRUG - OTHER] SQ (19:52)
[2017-08-07] MEDS ORDERED: PIOG15TA21 PO (19:53)
[2017-08-07] MEDS ORDERED: GLIP5TAB13 PO (19:53)
[2017-08-07 20:09] LABS: BASOPHILS % 0.1 % (0.0-2.0); EOSINOPHILS # 0.1 10^3/ul (0.0-0.5); EOSINOPHILS % 0.8 % (0.0-7.0); HEMATOCRIT 38.8 % (37.0-47.0); HEMOGLOBIN 12.7 g/dl (12.0-16.0); LYMPHOCYTES # 2.2 10^3/ul (0.8-2.9); LYMPHOCYTES % 30.2 % (15.0-51.0); MEAN CORPUSCULAR HEMOGLOBIN 30.3 pg (29.0-33.0); MEAN CORPUSCULAR HGB CONC 32.7 g/dl (32.0-37.0); MEAN CORPUSCULAR VOLUME 92.6 fl (82.0-101.0); MEAN PLATELET VOLUME 9.6 fl (7.4-10.4); MONOCYTE # 0.5 10^3/ul (0.3-0.9); MONOCYTES % 6.7 % (0.0-11.0); NEUTROPHILS % 61.8 % (39.0-77.0); PLATELET COUNT 309 10^3/UL (140-415); RED BLOOD COUNT 4.19 10^6/ul (4.20-5.40); RED CELL DISTRIBUTION WIDTH 13.7 % (11.5-14.5); WHITE BLOOD COUNT 7.4 10^3/ul (4.8-10.8)
[2017-08-07 20:19] LABS: ADD UMIC YES; UR ASCORBIC ACID NEGATIVE (NEGATIVE); UR BILIRUBIN (Dip) NEGATIVE (NEGATIVE); UR BLOOD (Dip) NEGATIVE (NEGATIVE); UR CLARITY SLIGHTLY CLOUDY (CLEAR); UR COLOR AMBER (YELLOW); UR GLUCOSE (Dip) NEGATIVE (NEGATIVE); UR KETONES (Dip) NEGATIVE (NEGATIVE); UR LEUKOCYTE ESTERASE (Dip) TRACE Leu/ul (NEGATIVE); UR MUCUS MANY /HPF (NONE SEEN); UR NITRITE (Dip) NEGATIVE (NEGATIVE); UR RBC 1 /HPF (0-5); UR SPECIFIC GRAVITY (Dip) 1.029 (1.003-1.030); UR SQUAMOUS EPITHELIAL CELL FEW /HPF (FEW); UR TOTAL PROTEIN (Dip) 1+ mg/dl (NEGATIVE); UR UROBILINOGEN (Dip) 1+ mg/dL (NEGATIVE)
[2017-08-07] MEDS ORDERED: DEXTROSE 50% 50 ML SYRINGE ONE (20:55)
[2017-08-07] MEDS ORDERED: DEXTROSE 50% 50 ML SYRINGE IV ONE (21:00)
[2017-08-07] MEDS ORDERED: OCTREOTIDE 50 MCG INJ SC ONE (21:00)
[2017-08-07] MEDS ORDERED: OCTREOTIDE 50 MCG INJ IV ONE (21:00)
--- NOTE | 2017-08-07 21:18 | RADRPT ---
PROCEDURE: Abdominal radiograph CLINICAL INDICATION: Abdominal Pain. COMPARISON: Radiograph from 07/20/2015. TECHNIQUE: AP view of the abdomen. FINDINGS: The visualized lung bases are clear. Cholecystectomy. Common biliary duct stent. No free air. No distended loops of bowel. No fluid levels. There is a nonobstructive bowel pattern. No suspicious calcifications. Mild degenerative changes of the lower lumbar spine. IMPRESSION: No bowel obstruction identified. RPTAT: [facility] Physician Shamir Date Time Electronically viewed and signed by Physician Shamir on 08/07/2017 21:18 LG/
[2017-08-07 21:34] VITALS: TEMP 98.6
[2017-08-07 21:45] LABS: CALCIUM 8.4 mg/dl (8.4-10.2); CREATININE 0.94 mg/dl (0.44-1.00); POTASSIUM 3.7 mmol/L (3.5-5.1)
[2017-08-07] MEDS ORDERED: SODIUM CHLORIDE 0.9% 1L BAG IV* ONE (22:10)
[2017-08-07] MEDS ORDERED: CEFTRIAXONE 1 GM/50 ML (PMX) 50 ML IVPB ONE (22:15)
[2017-08-07] MEDS ORDERED: ACETAMINOPHEN 325 MG TAB PO PRN (23:00)
[2017-08-07] MEDS ORDERED: ONDANSETRON 4 MG INJ IV PRN (23:00)
[2017-08-08] VITALS (11 sets, daily range): BP systolic 101–130; BP diastolic 51–62; PULSE 59–71; RESP 16–20; Ht 152.4 cm; Wt 55.0 kg
[2017-08-08] MEDS ORDERED: SOD CHLORIDE 0.9% 1,000 ML IV SCH (01:11)
[2017-08-08] MEDS ORDERED: GLUCOSE GEL 15 GRAM TUBE PO PRN ×2 (01:30)
[2017-08-08] MEDS: FAMOTIDINE 20 MG INJ IV SCH ×2 (01:30→09:08)
[2017-08-08] MEDS ORDERED: morphine 2 MG INJ IV PRN (01:30)
[2017-08-08] MEDS ORDERED: NACL 0.9% 3 ML SYG IV SCH (01:30)
[2017-08-08] MEDS ORDERED: DOCUSATE SODIUM 100 MG CAP PO PRN (01:30)
[2017-08-08] MEDS ORDERED: ONDANSETRON 4 MG INJ IV PRN (01:30)
[2017-08-08] MEDS ORDERED: DEXTROSE 50% 50 ML SYRINGE IV PRN ×2 (01:30)
[2017-08-08] MEDS ORDERED: BISACODYL (EC) 5 MG TAB PO PRN (01:30)
[2017-08-08] MEDS ORDERED: GLUCAGON 1 MG INJ IM PRN (01:30)
[2017-08-08] MEDS ORDERED: GLUCOSE GEL 15 GRAM TUBE BUCCAL PRN (01:30)
[2017-08-08] MEDS ORDERED: ACETAMINOPHEN 325 MG TAB PO PRN (01:30)
[2017-08-08] MEDS: ACCU-CHEK XX SCH (02:00)
[2017-08-08] MEDS ORDERED: SOD CHLORIDE 0.9% 1,000 ML IV ONE ×2 (03:09→07:00)
[2017-08-08] MEDS: INSULIN ASPART [NOVOLOG] 3 ML PEN SC SCH ×5 (05:00→20:59)
--- NOTE | 2017-08-08 06:50 | HP ---
Date/Time of Note Date/Time of Note DATE: 08/08/17 TIME: 06:47 Assessment/Plan VTE Prophylaxis VTE Prophylaxis Intervention: SCD's Lines/Catheters IV [facility]from [facility] Assessment/Plan Chief Complaint/Hosp Course This is a 76-year-old female being admitted to the telemetry floor for: #1 symptomatic hypoglycemia: Likely multifactorial secondary to underlying urinary tract infection and decreased appetite and continued medication use. Patient received Sandostatin in the ED. Currently will put her on a D5 water as she has poor appetite at this time. Will continue to monitor blood sugars. Hold home diabetes medication at this time. #2 lactic acidosis: Again likely multifactorial secondary to urinary tract infection, dehydration from poor appetite, and metformin. Will provide IV fluid hydration at this time will hold metformin. Provide antibiotics for urinary tract infection. Will trend lactate. #3 abdominal pain: This likely could be secondary to patient's generalized illness as well as UTI however in the setting of her age and being a female as well as lactic acidosis I will also check cardiac enzymes. There is no rectal bleeding at this time. #3 dehydration: Patient received normal saline boluses in the ED will continue normal saline bolus as well as D5 water secondary to #1. #4 urinary tract infection: The current time will treat with ceftriaxone. Will await urine culture #5 DVT GI prophylaxis: SCDs, acid pito Further treatment strategy will be implemented as per the clinical course Problems: HPI/ROS Admit Date/Time Admit Date/Time Aug 07, 2017 at 22:47 Hx of Present Illness Chief complaint: Vomiting 2-3 days Patient is a 76-year-old female recently discharged from the hospital with UTI and on antibiotics who presents to the ER with gradual onset, intermittent, moderate nonbloody nonbilious vomiting for 2-3 days. Her family reports that she has not been eating well since she left the hospital and has had constipation. She has had numerous episodes of vomiting in the last 2-3 days. She denied fever headache and abdominal pain in the ED. However upon my examination patient did report that she had some abdominal pain. Patient is also poor historian Allergies: NKDA Medications: See GALE COTE Const: As per HPI Eyes : No pain discharge or redness or change in visual acuity ENT: No pain, sore throat, congestion, congestion, dysphagia or discharge Respiratory: No shortness of breath, cough, sputum, wheezing, or pleuritic pain Cardiovascular: No chest pain, palpitation, PND, or edema GI : As per HPI Genitourinary: No dysuria, hematuria, flank pain , discharge or CVA tenderness Musculoskeletal: No joint pain, back pain, neck pain, restricted range of motion in neck or joints Skin: No rash, bruising or hives Neuro: No headache, dizziness, syncope, seizure, focal weakness Endocrine: No polyuria, polydipsia, temperature intolerance Psych: No hallucination, depression, anxiety or suicidal ideation PMH/Family/Social Past Medical History Diabetes mellitus, hypertension, hyperlipidemia Past Surgical History Hysterectomy, cholecystectomy Past Surgical Hx: other Family History Significant Family History: no pertinent family hx Social History Smoking Status: Never smoker Drug Use: none Exam/Review of Systems Vital Signs Vitals Vital Signs Date Time Temp Pulse Resp B/P Pulse Ox O2 Delivery O2 Flow Rate FiO2 08/08/17 05:03 97.8 76 16 130/62 98 08/08/17 00:13 Room Air Exam Exam General: Patient is lying in bed, lethargic however she is alert and awake HEENT: Atraumatic, normocephalic. The pupils are equal, round and reactive. Extraocular motor are intact Neck: Supple with full range of motion. No rigidity or meningismus Chest: Nontender Lungs: Clear to auscultation bilaterally no crackles rales or wheezing Heart: Normal S1-S2, Regular rhythm and rate. No murmur, S3, or S4 Abdomen: Soft, tenderness to palpation over the epigastric region and lower abdominal region, normal bowel sounds Extremities: Normal to inspection, no edema no cyanosis Neurologic: Normal mental status, speech normal, cranial nerves II through XII are intact, motor and sensory are intact, Additional Comments PROCEDURE: Abdominal radiograph CLINICAL INDICATION: Abdominal Pain. COMPARISON: Radiograph from 07/20/2015. TECHNIQUE: AP view of the abdomen. FINDINGS: The visualized lung bases are clear. Cholecystectomy. Common biliary duct stent. No free air. No distended loops of bowel. No fluid levels. There is a nonobstructive bowel pattern. No suspicious calcifications. Mild degenerative changes of the lower lumbar spine. IMPRESSION: No bowel obstruction identified. RPTAT: [facility] Shabnam Valdez Physician Date Time Electronically viewed and signed by Shabnam Valdez Physician on 08/07/2017 21: 18 LG/ CC: CESAR GARCIA MD Labs Result Diagram: 08/07/17192908/07/172105 Medications Medications Current Medications Ondansetron HCl (Zofran Inj) 4 mg Q6H PRN IV NAUSEA AND/OR VOMITING; Start 08/08 at 01:30 Acetaminophen (Tylenol Tab) 650 mg Q6H PRN PO PAIN LEVEL 1-3 OR FEVER; Start at 01:30 Morphine Sulfate (morphine) 2 mg Q4H PRN IV PAIN LEVEL 7-10; Start 08/08/17 at 01:30 Docusate Sodium (Colace) 100 mg Q12H PRN PO CONSTIPATION; Start 08/08/17 at 01: 30 Bisacodyl (Dulcolax) 5 mg DAILY PRN PO CONSTIPATION; Start 08/08/17 at 01:30 Famotidine (Pepcid Iv) 20 mg DAILY IV Last administered on 08/08/17 01:30; Admin Dose 20 MG; Start 08/08/17 at 01:30 Diagnostic Test (Pha) (Accu-Chek) 1 ea 02 XX Last administered on 08/08/17 02: 00; Admin Dose 1 EA; Start 08/08/17 at 02:00 Insulin Aspart (Novolog Insulin Pen) NOVOLOG *MILD* ALGORI... Q4 SC ; Start 08/08 at 05:00 Miscellaneous Information 1 ea NOTE XX ; Start 08/08/17 at 01:30 Glucose (Glutose) 15 gm Q15M PRN PO DECREASED GLUCOSE; Start 08/08/17 at 01:30 Glucose (Glutose) 22.5 gm Q15M PRN PO DECREASED GLUCOSE; Start 08/08/17 at 01:30 Dextrose (D50w Syringe) 25 ml Q15M PRN IV DECREASED GLUCOSE; Start 08/08/17 at 01:30 Dextrose (D50w Syringe) 50 ml Q15M PRN IV DECREASED GLUCOSE; Start 08/08/17 at 01:30 Glucagon (Glucagen) 1 mg Q15M PRN IM DECREASED GLUCOSE; Start 08/08/17 at 01:30 Glucose 15 gm 15 gm Q15M PRN BUCCAL DECREASED GLUCOSE; Start 08/08/17 at 01:30 Sodium Chloride 1,000 ml @ 75 mls/hr [id number] ONCE IV Last administered on t 03:25; Admin Dose 75 MLS/HR; Start 08/08/17 at 03:09; Stop 08/08/17 at 16:28 Dextrose/Sodium Chloride (D5-NS) 1,000 ml @ 70 mls/hr [id number] IV ; Start at 13:30 CARLEY RANKIN Aug 08, 2017 06:50
--- NOTE | 2017-08-08 12:21 | PN ---
Date/Time of Note Date/Time of Note DATE: 08/08/17 TIME: 12:21 Assessment/Plan VTE Prophylaxis VTE Prophylaxis Intervention: SCD's Lines/Catheters IV Catheter Type (from Nrsg): Peripheral IV Assessment/Plan Assessment/Plan #1 symptomatic hypoglycemia: Likely multifactorial secondary to underlying urinary tract infection and decreased appetite and continued medication use. Patient received Sandostatin in the ED. Currently will put her on a D5 water as she has poor appetite at this time. Will continue to monitor blood sugars. Hold home diabetes medication at this time. #2 lactic acidosis: Again likely multifactorial secondary to urinary tract infection, dehydration from poor appetite, and metformin. Will provide IV fluid hydration at this time will hold metformin. Provide antibiotics for urinary tract infection. Will trend lactate. #3 abdominal pain: This likely could be secondary to patient's generalized illness as well as UTI however in the setting of her age and being a female as well as lactic acidosis I will also check cardiac enzymes. There is no rectal bleeding at this time. #3 dehydration: Patient received normal saline boluses in the ED will continue normal saline bolus as well as D5 water secondary to #1. #4 urinary tract infection: The current time will treat with ceftriaxone. Will await urine culture #5 DVT GI prophylaxis: SCDs, acid pito Exam/Review of Systems Vital Signs Vitals Vital Signs Date Time Temp Pulse Resp B/P Pulse Ox O2 Delivery O2 Flow Rate FiO2 08/08/17 11:29 98.0 63 20 114/59 95 08/08/17 00:13 Room Air Results Result Diagram: 08/07/17 19308/07/176 Results 24 hrs Laboratory Tests Test 08/07/17 19:30 08/07/17 20:58 08/07/17 21:06 08/07/17 21:16 White Blood Count 7.4 Red Blood Count 4.19 L Hemoglobin 12.7 Hematocrit 38.8 Mean Corpuscular Volume 92.6 Mean Corpuscular Hemoglobin 30.3 Mean Corpuscular Hemoglobin Concent 32.7 Red Cell Distribution Width 13.7 Platelet Count 309 Mean Platelet Volume 9.6 Neutrophils % 61.8 Lymphocytes % 30.2 Monocytes % 6.7 Eosinophils % 0.8 Basophils % 0.1 Nucleated Red Blood Cells % 0.0 Neutrophils # (Manual) 4.5 Lymphocytes # 2.2 Monocytes # 0.5 Eosinophils # 0.1 Basophils # 0.0 Nucleated Red Blood Cells # 0.0 Urine Color KIERSTEN Urine Clarity SLIGHTLY CLOUDY A Urine pH 5.0 Urine Specific [place] 1.029 Urine Ketones NEGATIVE Urine Nitrite NEGATIVE Urine Bilirubin NEGATIVE Urine Urobilinogen 1+ H Urine Leukocyte Esterase TRACE A Urine Microscopic RBC 1 Urine Microscopic WBC 10 H Urine Squamous Epithelial Cells FEW Urine Mucus MANY A Urine Hemoglobin NEGATIVE Urine Glucose NEGATIVE Urine Total Protein 1+ H Bedside Glucose 26 *L 137 Sodium Level 135 Potassium Level 3.7 Chloride Level 103 Carbon Dioxide Level 25 Anion Gap 11 Blood Urea Nitrogen 23 H Creatinine 0.94 Glucose Level 170 Calcium Level 8.4 Test 08/07/17 21:58 08/07/17 23:31 08/08/17 02:09 08/08/17 03:04 Bedside Glucose 162 97 Lactic Acid Level 3.4 *H 3.0 *H Test 08/08/17 07:22 08/08/17 08:17 08/08/17 08:56 08/08/17 09:26 Lactic Acid Level 2.7 *H Bedside Glucose 68 L 80 101 Test 08/08/17 11:55 Bedside Glucose 126 Medications Medications Current Medications Ondansetron HCl (Zofran Inj) 4 mg Q6H PRN IV NAUSEA AND/OR VOMITING; Start 08/08 at 01:30 Acetaminophen (Tylenol Tab) 650 mg Q6H PRN PO PAIN LEVEL 1-3 OR FEVER; Start at 01:30 Morphine Sulfate (morphine) 2 mg Q4H PRN IV PAIN LEVEL 7-10; Start 08/08/17 at 01:30 Docusate Sodium (Colace) 100 mg Q12H PRN PO CONSTIPATION; Start 08/08/17 at 01: 30 Bisacodyl (Dulcolax) 5 mg DAILY PRN PO CONSTIPATION; Start 08/08/17 at 01:30 Famotidine (Pepcid Iv) 20 mg DAILY IV Last administered on 08/08/17 09:08; Admin Dose 20 MG; Start 08/08/17 at 01:30 Diagnostic Test (Pha) (Accu-Chek) 1 ea 02 XX Last administered on 08/08/17 02: 00; Admin Dose 1 EA; Start 08/08/17 at 02:00 Insulin Aspart (Novolog Insulin Pen) NOVOLOG *MILD* ALGORI... Q4 SC ; Start 08/08 at 05:00 Miscellaneous Information 1 ea NOTE XX ; Start 08/08/17 at 01:30 Glucose (Glutose) 15 gm Q15M PRN PO DECREASED GLUCOSE; Start 08/08/17 at 01:30 Glucose (Glutose) 22.5 gm Q15M PRN PO DECREASED GLUCOSE; Start 08/08/17 at 01:30 Dextrose (D50w Syringe) 25 ml Q15M PRN IV DECREASED GLUCOSE; Start 08/08/17 at 01:30 Dextrose (D50w Syringe) 50 ml Q15M PRN IV DECREASED GLUCOSE; Start 08/08/17 at 01:30 Glucagon (Glucagen) 1 mg Q15M PRN IM DECREASED GLUCOSE; Start 08/08/17 at 01:30 Glucose 15 gm 15 gm Q15M PRN BUCCAL DECREASED GLUCOSE; Start 08/08/17 at 01:30 Sodium Chloride 1,000 ml @ 75 mls/hr [id number] ONCE IV Last administered on t 03:25; Admin Dose 75 MLS/HR; Start 08/08/17 at 03:09; Stop 08/08/17 at 16:28 Dextrose/Sodium Chloride 1,000 ml @ 70 mls/hr [id number] IV ; Start 08/08/17 at 13: 30 Ceftriaxone Sodium (Rocephin) 50 ml @ 100 mls/hr Q24H IVPB ; Start 08/08/17 at 14:00 DARYL FREGOSO MD Aug 08, 2017 12:21
[2017-08-08 12:48] LABS: CREATINE KINASE 35 IU/L (23-200)
[2017-08-08 13:00] LABS: CK-MB 0.56 ng/ml (0.0-2.4)
[2017-08-08 13:01] LABS: TROPONIN-I < 0.012 ng/ml (0.00-0.12)
[2017-08-08] MEDS: CEFTRIAXONE 1 GM/50 ML (PMX) 50 ML IVPB SCH (13:37)
[2017-08-08] MEDS: DEXTROSE 5%-0.9% NACL 1,000 ML IV SCH (15:31)
[2017-08-08 19:36] LABS: CREATINE KINASE 32 IU/L (23-200)
[2017-08-08 19:46] LABS: CK-MB 0.71 ng/ml (0.0-2.4)
[2017-08-08 19:50] LABS: TROPONIN-I < 0.012 ng/ml (0.00-0.12)
[2017-08-09] VITALS (11 sets, daily range): BP systolic 101–127; BP diastolic 58–59; PULSE 62–70; RESP 16–20
[2017-08-09] MEDS: INSULIN ASPART [NOVOLOG] 3 ML PEN SC SCH ×6 (01:06→20:51)
[2017-08-09] MEDS: ACCU-CHEK XX SCH (01:07)
[2017-08-09] MEDS: DEXTROSE 5%-0.9% NACL 1,000 ML IV SCH ×2 (03:45→05:08)
[2017-08-09 08:24] LABS: BASOPHILS % 0.3 % (0.0-2.0); EOSINOPHILS # 0.1 10^3/ul (0.0-0.5); HEMATOCRIT 41.2 % (37.0-47.0); HEMOGLOBIN 13.4 g/dl (12.0-16.0); LYMPHOCYTES # 1.9 10^3/ul (0.8-2.9); LYMPHOCYTES % 31.4 % (15.0-51.0); MEAN CORPUSCULAR HEMOGLOBIN 29.8 pg (29.0-33.0); MEAN CORPUSCULAR HGB CONC 32.5 g/dl (32.0-37.0); MEAN CORPUSCULAR VOLUME 91.8 fl (82.0-101.0); MEAN PLATELET VOLUME 9.3 fl (7.4-10.4); MONOCYTE # 0.3 10^3/ul (0.3-0.9); MONOCYTES % 5.2 % (0.0-11.0); NEUTROPHILS % 60.8 % (39.0-77.0); PLATELET COUNT 285 10^3/UL (140-415); RED BLOOD COUNT 4.49 10^6/ul (4.20-5.40); RED CELL DISTRIBUTION WIDTH 13.6 % (11.5-14.5); WHITE BLOOD COUNT 5.9 10^3/ul (4.8-10.8)
[2017-08-09] MEDS: FAMOTIDINE 20 MG INJ IV SCH (08:34)
[2017-08-09 08:46] LABS: ALBUMIN 3.8 g/dl (3.3-4.9); ALBUMIN/GLOBULIN RATIO 1.02; BILIRUBIN,INDIRECT 0.2 mg/dl (0-1.1); BILIRUBIN,TOTAL 0.2 mg/dl (0.2-1.3); CHOL/HDL RATIO 3.9 RATIO; CREATININE 0.8 mg/dl (0.44-1.00); MAGNESIUM 1.4 mg/dl (1.7-2.5); POTASSIUM 4.1 mmol/L (3.5-5.1); TOTAL PROTEIN 7.5 g/dl (6.1-8.1)
[2017-08-09 09:43] LABS: THYROID STIMULATING HORMONE 3.62 MIU/L (0.465-4.680)
[2017-08-09] MEDS ORDERED: MAGNESIUM OXIDE 400 MG TAB PO ONE (11:00)
[2017-08-09] MEDS: CEFTRIAXONE 1 GM/50 ML (PMX) 50 ML IVPB SCH (14:02)
--- NOTE | 2017-08-09 15:25 | PN ---
Date/Time of Note Date/Time of Note DATE: 08/09/17 TIME: 15:21 Assessment/Plan VTE Prophylaxis VTE Prophylaxis Intervention: SCD's Lines/Catheters IV Catheter Type (from Nrsg): Peripheral IV Assessment/Plan Assessment/Plan 76 yo F admitted for symptomatic hypoglycemia of iatrogenic origin a1c is <7, which is well within goal given pt's advanced age. Unclear what PCP has as target but anything under 8 seems reasonable given her advanced age hold all home DM meds, stop d5 urine culture with low CFU count not consistent with infection will dc in AM if continues to feel well will dc tele Subjective 24 Hr Interval Summary Free Text/Dictation Pt feeling much better. Eating well Exam/Review of Systems Vital Signs Vitals Vital Signs Date Time Temp Pulse Resp B/P Pulse Ox O2 Delivery O2 Flow Rate FiO2 08/09/17 12:17 70 08/09/17 11:55 98.0 18 127/59 98 08/08/17 00:13 Room Air Intake and Output 08/08/17 08/08/17 08/09/17 15:00 23:00 07:00 Intake Total 1050 ml 1960 ml 910 ml Balance 1050 ml 1960 ml 910 ml Exam nad no mrg lungs clear abd soft no rashes urine culture with <10k CFUs GNRs Results Result Diagram: 08/09/17 0801 08/09/17 0802 Results 24 hrs Laboratory Tests Test 08/08/17 17:47 08/08/17 18:57 08/08/17 20:56 08/09/17 01:02 Bedside Glucose 168 219 151 Creatine Kinase 32 Creatine Kinase Index 2.2 Creatinine Kinase MB (Mass) 0.71 Troponin I < 0.012 Test 08/09/17 05:00 08/09/17 08:01 08/09/17 08:02 08/09/17 08:32 Bedside Glucose 167 187 White Blood Count 5.9 # Red Blood Count 4.49 Hemoglobin 13.4 Hematocrit 41.2 Mean Corpuscular Volume 91.8 Mean Corpuscular Hemoglobin 29.8 Mean Corpuscular Hemoglobin Concent 32.5 Red Cell Distribution Width 13.6 Platelet Count 285 Mean Platelet Volume 9.3 Neutrophils % 60.8 Lymphocytes % 31.4 Monocytes % 5.2 Eosinophils % 2.0 Basophils % 0.3 Nucleated Red Blood Cells % 0.0 Neutrophils # (Manual) 3.6 Lymphocytes # 1.9 Monocytes # 0.3 Eosinophils # 0.1 Basophils # 0.0 Nucleated Red Blood Cells # 0.0 Hemoglobin A1c 6.5 H Sodium Level 141 Potassium Level 4.1 Chloride Level 107 Carbon Dioxide Level 26 Anion Gap 12 Blood Urea Nitrogen 14 # Creatinine 0.80 Glucose Level 189 Calcium Level 9.0 Magnesium Level 1.4 L Total Bilirubin 0.2 Direct Bilirubin 0.00 Indirect Bilirubin 0.2 Aspartate Amino Transf (AST/SGOT) 26 Alanine Aminotransferase (ALT/SGPT) 32 Alkaline Phosphatase 53 Total Protein 7.5 Albumin 3.8 Globulin 3.70 H Albumin/Globulin Ratio 1.02 Triglycerides Level 87 Cholesterol Level 91 L LDL Cholesterol, Calculated 51 HDL Cholesterol 23 L Cholesterol/HDL Ratio 3.9 Thyroid Stimulating Hormone (TSH) 3.620 Test 08/09/17 11:56 Bedside Glucose 173 Medications Medications Current Medications Ondansetron HCl (Zofran Inj) 4 mg Q6H PRN IV NAUSEA AND/OR VOMITING; Start 08/08 at 01:30 Acetaminophen (Tylenol Tab) 650 mg Q6H PRN PO PAIN LEVEL 1-3 OR FEVER Last administered on 08/08/17 17:42; Admin Dose 650 MG; Start 08/08/17 at 01:30 Morphine Sulfate (morphine) 2 mg Q4H PRN IV PAIN LEVEL 7-10; Start 08/08/17 at 01:30 Docusate Sodium (Colace) 100 mg Q12H PRN PO CONSTIPATION; Start 08/08/17 at 01: 30 Bisacodyl (Dulcolax) 5 mg DAILY PRN PO CONSTIPATION; Start 08/08/17 at 01:30 Diagnostic Test (Pha) (Accu-Chek) 1 ea 02 XX Last administered on 08/08/17 02: 00; Admin Dose 1 EA; Start 08/08/17 at 02:00 Insulin Aspart (Novolog Insulin Pen) NOVOLOG *MILD* ALGORI... Q4 SC Last administered on 08/09/17 12:03; Admin Dose 1 UNIT; Start 08/08/17 at 05:00 Miscellaneous Information 1 ea NOTE XX ; Start 08/08/17 at 01:30 Glucose (Glutose) 15 gm Q15M PRN PO DECREASED GLUCOSE; Start 08/08/17 at 01:30 Glucose (Glutose) 22.5 gm Q15M PRN PO DECREASED GLUCOSE; Start 08/08/17 at 01:30 Dextrose (D50w Syringe) 25 ml Q15M PRN IV DECREASED GLUCOSE; Start 08/08/17 at 01:30 Dextrose (D50w Syringe) 50 ml Q15M PRN IV DECREASED GLUCOSE; Start 08/08/17 at 01:30 Glucagon (Glucagen) 1 mg Q15M PRN IM DECREASED GLUCOSE; Start 08/08/17 at 01:30 Glucose 15 gm 15 gm Q15M PRN BUCCAL DECREASED GLUCOSE; Start 08/08/17 at 01:30 Ceftriaxone Sodium (Rocephin) 50 ml @ 100 mls/hr Q24H IVPB Last administered on 08/09/17t 14:02; Admin Dose 100 MLS/HR; Start 08/08/17 at 14:00 OLMAN YARBROUGH MD Aug 09, 2017 15:25
[2017-08-09] MEDS ORDERED: INSULIN ASPART [NOVOLOG] 3 ML PEN SC SCH (21:00)
[2017-08-10 00:53] VITALS: BP 114/65; RESP 18
[2017-08-10] MEDS ORDERED: ACCU-CHEK XX SCH ×2 (02:00)
[2017-08-10] MEDS: ACCU-CHEK XX SCH (02:00)
[2017-08-10 07:31] VITALS: BP 122/61; RESP 20
[2017-08-10] MEDS: INSULIN ASPART [NOVOLOG] 3 ML PEN SC SCH ×2 (08:30→11:10)
--- NOTE | 2017-08-10 09:09 | PDOCDIS ---
Discharge Instructions CONDITION Patient Condition: Stable HOME CARE INSTRUCTIONS: Diet Instructions: Special Diet: diabetic/carb controlled FOLLOW UP/APPOINTMENTS Follow-up Plan Follow up with your regular doctor this week. DO NOT TAKE ANY INSULIN UNTIL YOU SEE YOUR REGULAR DOCTOR. Check your blood sugars twice daily and bring the results to your regular doctor Also your blood pressure has been well controlled on no blood pressure medication. Please hold off on taking any blood pressure medication until you see your regular doctor. OLMAN YARBROUGH MD Aug 10, 2017 09:09
--- NOTE | 2017-08-10 09:16 | DS ---
Date/Time of Note Date/Time of Note DATE: 08/10/17 TIME: 09:09 Discharge Summary Admission/Discharge Info Admit Date/Time Aug 07, 2017 at 22:47 Discharge Date/Time Discharge Diagnosis iatrogenic hypoglycemia Patient Condition: Stable Procedures a1c 6.5 urine culture <10k CFU GNRs All BPs <140/90 Hx of Present Illness Chief complaint: Vomiting 2-3 days Patient is a 76-year-old female recently discharged from the hospital with UTI and on antibiotics who presents to the ER with gradual onset, intermittent, moderate nonbloody nonbilious vomiting for 2-3 days. Her family reports that she has not been eating well since she left the hospital and has had constipation. She has had numerous episodes of vomiting in the last 2-3 days. She denied fever headache and abdominal pain in the ED. However upon my examination patient did report that she had some abdominal pain. Patient is also poor historian Allergies: NKDA Medications: See [facility] Hospital Course Pt admitted for symptomatic hypoglycemia, initially required dextrose infusion. During last 24 hours of her hospital stay, pt was on no fluids and only prandial SSI. BGs all <225. Also home BP meds held at admission and BP remained <130/70. There was concern pt might have had cystitis, but urine culture with low CFU count thus no empiric evidence of UTI. Pt discharged home, advised to hold off on taking any BP or DM meds until seen by PCP. Given a1c is 6.5, suspect control is too tight at home. Given pt's advanced age , ADA advises a1c<7.5. BP goal given pt's age <140/90 which she's remained at here in the hospital on no medications. Furthermore, urine culture from pt's ER visit 8. was <10k CFUs mixed GPOs consistent with contaminant. Unlikely this patient ever had cystitis in the first place. Home Meds Reported Medications Metoprolol Succinate* (Toprol XL*) 25 Mg Tab.sr.24h, 25 MG PO DAILY, #30 TAB 08/07/17 [Basaglar 100/Ml ] No Conflict Check, 14 UNITS SQ DAILY KWIKPEN 08/07/17 Atorvastatin Calcium (Atorvastatin Calcium) 10 Mg Tablet, 10 MG PO QHS, #30 TAB 07/31/17 Aspirin* (Aspirin* EC) 81 Mg Tablet.dr, 81 MG PO DAILY, TAB 07/31/17 Omeprazole* (Prilosec*) 20 Mg Capsule.dr, 20 MG PO DAILY for NEEDED, CAP 10/17/14 Discontinued Reported Medications Pioglitazone Hcl* (Pioglitazone Hcl*) 15 Mg Tablet, 15 MG PO DAILY, TAB 08/07/17 Glipizide* (Glipizide*) 5 Mg Tablet, 5 MG PO AC BREAKFAST DINNER, TAB 08/07/17 Metformin Hcl* (Metformin Hcl*) 1,000 Mg Tablet, 1000 MG PO WITH BREAKFAST DINNE , #60 TAB 07/31/17 Insulin Glargine* (Lantus*) 100 Unit/Ml Soln, 14 UNIT SC DAILY, #1 VIAL 06/26/17 Glipizide* (Glipizide*) 10 Mg Tablet, 10 MG PO AC BREAKFAST BEDTIME, TAB 01/14/15 Pioglitazone Hcl* (Actos*) 45 Mg Tablet, 45 MG PO DAILY, TAB 10/17/14 Discontinued Scripts Ondansetron (Zofran Odt) 4 Mg Tab.rapdis, 4 MG PO Q6, #10 Prov:CECI LLOYD DO 07/31/17 Levofloxacin* (Levaquin*) 500 Mg Tablet, 500 MG PO DAILY for 7 Days, TAB Prov:CECI LLOYD DO 07/31/17 Follow-up Plan PCP within 5 days copy of dc summary given to pt's daughter prior to discharge Primary Care Provider Gm Gregory Time spent on discharge: > 30 minutes Pending Labs Laboratory Tests Test 08/09/17 11:56 08/09/17 16:58 08/09/17 20:10 08/10/17 08:30 Bedside Glucose 173mg/dL (70-220) 223mg/dL (70-220) 170mg/dL (70-220) 173mg/dL (70-220) OLMAN YARBROUGH MD Aug 10, 2017 09:15
== END 2017-08-10 11:30 | disposition home or self-care (01) ==
LOC: E/R 16:40 → MS4 22:47 → MS1 08-10 00:13
PROVIDERS: ADMIT Family Medicine; ATTEND Family Medicine
DX: E11.649 Type 2 diabetes mellitus with hypoglycemia without coma (principal); E87.2 Acidosis; R10.9 Unspecified abdominal pain; E86.0 Dehydration; N39.0 Urinary tract infection, site not specified; I10 Essential (primary) hypertension; Z79.82 Long term (current) use of aspirin; Z79.4 Long term (current) use of insulin; Z90.49 Acquired absence of other specified parts of digestive tract; Z83.3 Family history of diabetes mellitus
CPT/HCPCS: 36415; 74000; 80048; 80053; 80061; 81001; 82550; 82553; 82962; 83036; 83605; 83735; 84443; 84484; 85025; 87040; 87086; 96374; 96375; J0696; J1815; J2354; J2405; J7030; J7040; J7042; Z7500; Z7502; Z7610; 96361; 96365; 96372; 99217; G0378

== ENCOUNTER 2018-03-25 23:44 | Emergency (ER) | END 2018-03-26 09:38 | disposition home or self-care (01) ==

== ENCOUNTER 2018-04-26 20:39 | Emergency (ER) | END 2018-04-27 03:55 | disposition home or self-care (01) ==

== ENCOUNTER 2019-01-28 09:45 | Inpatient (IN) | payer OTHER ==
[~2019-01-28] VITALS: Ht 152.4 cm; Wt 50.5 kg
[~2019-01-28 09:45] MED LIST changes: -ASPI-664 PO; +CEPH-443 PO; -GLIP-95 PO; +INSU100I33 SC; -LANT3I SC; -LEVO500T72 PO; +METF-480 PO; -METF1000 PO; +METO-335 PO; -OMEP20CA9 PO; -ONDA4TAB11 PO; -PIOG45TA6 PO
[2019-01-28] MEDS ORDERED: SODIUM CHLORIDE 0.9% 1L BAG IV* STA (10:05)
[2019-01-28] MEDS ORDERED: KETOROLAC 15 MG INJ IV STA (10:36)
[2019-01-28] MEDS ORDERED: VANCOMYCIN 1 GM (PMX) 250 ML IVPB ONE (11:00)
[2019-01-28] MEDS ORDERED: CEFEPIME 1GM/50 ML (PMX) 50 ML IVPB ONE (11:00)
[2019-01-28] MEDS ORDERED: ACETAMINOPHEN 325 MG TAB PO ONE (11:00)
--- NOTE | 2019-01-28 13:01 | ERD ---
ER Documentation Chief Complaint Chief Complaint Complains of a fever with abdominal pain and vomiting HPI This is a 78-year-old female with a past medical history of hypertension, hyperlipidemia, diabetes, previous cholecystectomy and biliary stent placement who is presenting with 2-3 days of progressive worsening fever, chills, s uprapubic cramping aching moderate abdominal pain with dysuria, nausea with multiple episodes of nonbilious nonbloody vomiting and a dry cough. The patient does not endorse any black or bloody or tarry stools. She does not endorse constipation or diarrhea. She does report a mild throbbing frontal headache with no vision changes. The patient and her family do not endorse any alleviating or exacerbating factors. The patient does not endorse neck or back pain. The patient denies lightheadedness or dizziness. The patient has had no chest pain or trouble breathing. The patient has had no focal deficits. The patient has had no weakness or numbness or tingling to the face or extremities. ROS All systems reviewed and are negative except as per history of present illness. Medications Home Meds Reported Medications Insulin Glargine,Hum.rec.anlog (Basaglar Kwikpen U-100) 100 Unit/1 Ml Insuln.pen, 16 UNIT SC DAILY, EA 03/26/18 Metoprolol Succinate* (Toprol XL*) 25 Mg Tab.sr.24h, 25 MG PO DAILY, #30 TAB 03/26/18 Atorvastatin Calcium (Atorvastatin Calcium) 10 Mg Tablet, 10 MG PO QHS, #30 TAB 03/26/18 Metformin* (Glucophage*) 850 Mg Tablet, 850 MG PO BID WITH MEALS, #30 TAB 03/26/18 Discontinued Scripts Cephalexin* (Keflex*) 500 Mg Capsule, 500 MG PO TID for 5 Days, CAP Prov:BERLIN GREEN MD 04/27/18 Allergies Allergies: Coded Allergies: No Known Allergy (Unverified , 08/07/17) PMhx/Soc History of Surgery: Yes (Gall bladder surgery, hysterectomy) Anesthesia Reaction: No Hx Neurological Disorder: No Hx Respiratory Disorders: No Hx Cardiac Disorders: Yes (HIGH CHOLESTEROL ) Hx Psychiatric Problems: No Hx Miscellaneous Medical Probl: Yes (DM) Hx Alcohol Use: No Hx Substance Use: No Hx Tobacco Use: No Smoking Status: Never smoker FmHx Family History: diabetes Physical Exam Vitals Vital Signs Date Temp Pulse Resp B/P (MAP) Pulse Ox O2 O2 Flow FiO2 Time Delivery Rate 01/28/19 98.9 88 22 100/58 98 Room Air 12:45 (72) 01/28/19 101.7 100 20 112/57 97 Room Air 11:25 (75) 01/28/19 102.3 10:41 01/28/19 106 18 122/64 98 Nasal 2.0 10:40 (83) Cannula 01/28/19 Nasal 2 10:10 Cannula 01/28/19 102.3 124 20 142/63 98 09:48 (89) Physical Exam Const: No apparent distress, well-developed, well-nourished Head: Normocephalic, Atraumatic Eyes: Normal Conjunctiva. Extraocular movements intact. Pupils equal, round and reactive to light ENT: Normal External Ears, Nose and Mouth. Neck: Full range of motion. No meningismus. Resp: Clear to auscultation bilaterally, No wheezes, rales or rhonchi Cardio: Regular rhythm. Tachycardia. No murmurs, rubs or gallops Abd: Soft, non distended. Mild suprapubic tenderness. Normal bowel sounds Skin: No petechiae or rashes Back: No midline tenderness. No CVA tenderness Ext: No cyanosis, or edema Neur: Awake and alert, oriented 4. Cranial nerves intact. No facial droop. Normal strength, sensation and coordination. Psych: Normal Mood and Affect Result Diagram: 01/28/19 0956 01/28/19 0956 Results 24 hrs Laboratory Tests Test 01/28/19 09:56 01/28/19 10:07 01/28/19 10:30 01/28/19 12:39 White Blood Count 10.9 10^3/ul Red Blood Count 4.40 10^6/ul Hemoglobin 13.3 g/dl Hematocrit 40.8 % Mean Corpuscular 92.7 fl Volume Mean Corpuscular 30.2 pg Hemoglobin Mean Corpuscular 32.6 g/dl Hemoglobin Concen t Red Cell 13.7 % Distribution Width Platelet Count 239 10^3/UL Mean Platelet 9.4 fl Volume Immature 0.300 % Granulocytes % Neutrophils % 75.5 % Lymphocytes % 16.3 % Monocytes % 7.8 % Eosinophils % 0.0 % Basophils % 0.1 % Nucleated Red 0.0 /100WBC Blood Cells % Immature 0.030 10^3/ul Granulocytes # Neutrophils # 8.2 10^3/ul Lymphocytes # 1.8 10^3/ul Monocytes # 0.9 10^3/ul Eosinophils # 0.0 10^3/ul Basophils # 0.0 10^3/ul Nucleated Red 0.0 10^3/ul Blood Cells # Prothrombin Time 13.4 Sec Prothrombin Time 1.0 Ratio INR International 1.01 Normalized Ratio Activated 32.6 Sec Partial Thrombopl ast Time Sodium Level 139 mmol/L Potassium Level 4.5 mmol/L Chloride Level 105 mmol/L Carbon Dioxide 23 mmol/L Level Anion Gap 11 Blood Urea 17 mg/dl Nitrogen Creatinine 0.95 mg/dl Est Glomerular mL/min Filtrat Rate mL/min Glucose Level 274 mg/dl Calcium Level 9.4 mg/dl Total Bilirubin 0.7 mg/dl Direct Bilirubin 0.00 mg/dl Indirect 0.7 mg/dl Bilirubin Aspartate Amino 24 IU/L Transf (AST/SGOT) Alanine 12 IU/L Aminotransferase (ALT/SGPT) Alkaline 55 IU/L Phosphatase Troponin I < 0.012 ng/ml Total Protein 8.2 g/dl Albumin 4.3 g/dl Globulin 3.90 g/dl Albumin/Globulin 1.10 Ratio POC Venous 2.1 mmol/L 1.2 mmol/L Lactate Urine Color YELLOW Urine Clarity SLIGHTLY CLOUDY Urine pH 6.0 Urine Specific 1.021 [place] Urine Ketones 1+ mg/dL Urine Nitrite POSITIVE mg/dL Urine Bilirubin NEGATIVE mg/dL Urine 1+ mg/dL Urobilinogen Urine Leukocyte NEGATIVE Hi/ul Esterase Urine Microscopic 8 /HPF RBC Urine Microscopic 9 /HPF WBC Urine Bacteria MANY /HPF Urine Mucus FEW /HPF Urine Hemoglobin 1+ mg/dL Urine Glucose 3+ mg/dL Urine Total 1+ mg/dl Protein Test 01/28/19 14:20 Lactic Acid Level 0.8 mmol/L Current Medications Medications Dose Sig/Krystal Start Time Status Last (Trade) Ordered Route PRN Stop Time Admin Dose Reason Admin Sodium 1,520 ml BOLUS OVER 2 01/28/19 DC 01/28/19 Chloride HOURS STAT 10:05 10:14 (NS) IV* 01/28/19 10:07 Vancomycin 250 ml @ ONCE ONCE 01/28/19 DC 01/28/19 HCl 125 mls/hr IVPB 11:00 11:18 01/28/19 12:59 Cefepime HCl 50 ml @ ONCE ONCE 01/28/19 DC 01/28/19 100 mls/hr IVPB 11:00 10:41 01/28/19 11:29 650 mg ONCE ONCE 01/28/19 DC 01/28/19 Acetaminophen PO 11:00 10:41 (Tylenol 01/28/19 11:01 Tab) Ketorolac 15 mg ONCE STAT 01/28/19 DC 01/28/19 Tromethamine IV 10:36 10:41 (Toradol) 01/28/19 10:38 Ondansetron 4 mg BRIDGE ORDER 01/28/19 DC HCl (Zofran PRN IV 13:30 Inj) NAUSEA/VOMITI 01/28/19 15:02 NG 650 mg ER BRIDGE 01/28/19 DC Acetaminophen PRN PO 13:30 (Tylenol .MILD PAIN 01/28/19 15:02 Tab) 1-3 OR TEMP IV Flush 3 ml PER 01/28/19 (NS 3 ml) PROTOCOL IV 15:00 Ondansetron 4 mg Q6H PRN 01/28/19 HCl (Zofran IV 15:00 Inj) NAUSEA/VOMITI NG 650 mg Q6H PRN 01/28/19 Acetaminophen PO .PAIN 1-3 15:00 (Tylenol OR TEMP Tab) 1 tab Q6H PRN 01/28/19 Acetaminophen PO .MOD PAIN 15:00 / 4-6 Hydrocodone Bitart ([place] (5/325)) Morphine 2 mg Q4H PRN 01/28/19 Sulfate IV .SEVERE 15:00 (morphine) PAIN 7-10 Docusate 100 mg Q12H PRN 01/28/19 Sodium PO 15:00 (Colace) .CONSTIPATION Magnesium 30 ml DAILY PRN 01/28/19 Hydroxide PO 15:00 (Milk Of Mag) .CONSTIPATION 40 mg DAILY@06 01/29/19 Pantoprazole PO 06:00 (Protonix Tab) Heparin 5,000 unit Q12 SC 01/28/19 Sodium 21:00 (Porcine) (Heparin (5000 Units/1ml)) Sodium 1,000 ml @ [id number] IV 01/28/19 Chloride 75 mls/hr 14:33 Lorazepam 0.5 mg Q6H PRN 01/28/19 (Ativan) IV ANXIETY 15:00 Albuterol/ 3 ml Q4H RESP 01/28/19 Ipratropium THERAPY PRN 15:00 (Duoneb) HHN SHORTNESS OF BREATH Piperacillin 100 ml @ Q6 IVPB 01/28/19 Sod/ 200 mls/hr 18:00 Tazobactam Sod 1 tab Q5M PRN 01/28/19 Nitroglycerin SL ANGINA 15:00 (Nitroglyceri n (Sl Tab) 0.4 Mg) Discontinue ONCE ONCE 01/28/19 DC Miscellaneous current oral XX 15:00 sulfonylur... 01/28/19 15:01 Information (* Miscellaneous Pharmacy Order) Diagnostic 1 ea 02 XX 01/29/19 Test (Pha) 02:00 (Accu-Chek) ONCE ONCE 01/28/19 DC Miscellaneous HYPOGLYCEMIA XX 15:00 PROTOCOL 01/28/19 15:01 Information w... (* Miscellaneous Pharmacy Order) Insulin NOVOLOG Q4 SC 01/28/19 Aspart *MILD* 17:00 (Novolog ALGORI... Insulin Pen) Discontinue ONCE ONCE 01/28/19 DC Miscellaneous all previ... XX 15:00 01/28/19 15:01 Information (* Miscellaneous Pharmacy Order) 10 mg QHS PO 01/28/19 Atorvastatin 21:00 Calcium (Lipitor) Insulin 16 unit DAILY SC 01/29/19 Cancel Glargine 09:00 (Lantus) Metoprolol 25 mg DAILY PO 01/29/19 Succinate 09:00 (Toprol Xl) 1 ea NOTE XX 01/28/19 Miscellaneous 15:00 Information Glucose 15 gm Q15M PRN 01/28/19 (Glutose) PO DECREASED 15:00 GLUCOSE Glucose 22.5 gm Q15M PRN 01/28/19 (Glutose) PO DECREASED 15:00 GLUCOSE Dextrose 25 ml Q15M PRN 01/28/19 (D50w IV DECREASED 15:00 Syringe) GLUCOSE Dextrose 50 ml Q15M PRN 01/28/19 (D50w IV DECREASED 15:00 Syringe) GLUCOSE Glucagon 1 mg Q15M PRN 01/28/19 (Glucagen) IM DECREASED 15:00 GLUCOSE Glucose 15 gm Q15M PRN 01/28/19 (Glutose) BUCCAL 15:00 DECREASED GLUCOSE Insulin 16 units DAILY SC 01/29/19 Glargine 09:00 (Lantus) Procedures/MDM MDM The patient's presentation warrants further investigation. Previous medical records, if available, were reviewed. LABS The patient's laboratory testing was obtained and reviewed. No emergent treatment was required unless described below. CBC: No E/o of systemic infection or severe anemia or thrombocytopenia Chemistry: No E/o severe acidosis or alkalosis or renal failure or liver disease. PT/INR: No E/o significant coagulopathy Lactate: E/o severe sepsis. Repeat is within normal limits. Troponin: No E/o acute ischemia Urine: E/o acute infection with hematuria EKG EKG read by me: Rate/Rhythm: Sinus tachycardia at 106 bpm Intervals: Normal [place]: Normal Impression: No evidence of acute ischemia. Sinus tachycardia IMAGING Imaging and Radiology interpretation reviewed. Chest x-ray FINDINGS: The heart and mediastinum are within normal limits. There is a cardiac recording device overlying the heart. There is a stent in the region of the CBD. There is air within the intrahepatic ducts. The lungs are clear. There is no pleural effusion or pneumothorax. IMPRESSION: No focal infiltrates. Air within the intrahepatic ducts with a CBD stent partially visualized. Electronically viewed and signed by .Denver Johnston MD, MD on 01/28/2019 10:53 Ultrasound abdomen FINDINGS: The liver demonstrates normal echogenicity. The liver is normal in size and no focal solid lesions are seen. The liver measures 11.7 cm in length. The portal vein is patent with normal direction of flow. There is air within the biliary tree. The patient is status post cholecystectomy. The common bile duct measures 9.7 mm in maximal dimension. The visualized portions of the pancreas are unremarkable. The tail of the pancreas is not seen. No free fluid is identified. The right kidney demonstrate normal echogenicity and cortical thickness. The right kidney measures 8.4 cm in long dimension. There is no evidence of hydronephrosis. There are no kidney stones. There is a 1.8 cm simple cyst. IMPRESSION: Status post cholecystectomy with physiologic dilatation of the CBD. Air within the biliary tree. CBD stent not visualized by ultrasound. Simple cyst in the right kidney. Electronically viewed and signed by .Denver Johnston MD, MD on 01/28/2019 12:01 TREATMENT/DISPOSITION The patient presents with symptoms concerning for severe sepsis related to urinary tract infection. The patient was febrile, tachycardic with a lactic ac idosis. A septic workup was completed as described below. The patient did endorse a cough, but I do not see any evidence of an upper respiratory infection, pneumonia or the flu at this time. The patient is hyperglycemic, but there is no evidence of DKA. This may be managed as needed. The patient's x-ray revealed concerns of possible pneumobilia. The patient's ultrasound also reveals this. The patient does not have right upper quadrant tenderness on my exam. The chronicity of this is unclear. I do not feel the patient requires emergent surgical consultation or intervention. The patient may benefit from gastroenterology evaluation in the hospital. Gas can also be seen with infection, and the patient does have a foreign body in the stent. The patient was treated with antibiotics and may be further assessed in the hospital. SEPSIS NOTE SIRS Criteria: Fever, tachycardia Infectious source: UTI End organ damage indicated by: Lactate > 2.0 mmol/L SEPSIS MANAGEMENT Time to recognize sepsis: 10:15 AM Time to recognize severe sepsis: 10:15 AM. Time to recognize septic shock: [No septic shock at this time]. 3 HOUR BUNDLE Blood cultures x 2 before abx: [Yes] 30 ml/kg NS bolus [Completed] Initial lactate 2.1 Repeat lactate 1.2 SEPTIC SHOCK ASSESSMENT: [NO] lactic acid > 4.0 [NO] persistent hypotension (SBP < 90 or 40 mmHg drop, MAP < 65) despite 30 L/kg IV fluid bolus CRITICAL CARE Critical care time [35] minutes Emergent fluid management while maintaining close respiratory support. Provision of immediate and broad-spectrum antibiotic therapy. Simultaneous assessment for possible sources in order to direct targeted therapy. Consideration for invasive and chemical support to prevent cardiopulmonary collapse. Critical care time is independent of procedures performed. ADMISSION The patient will be admitted to [Panel] in accordance with the patient's insurance. The patient was accepted by Dr. Sylvester at 12:55 PM on January 28, 2019. Disclaimer: Inadvertent spelling and grammatical errors are likely due to EHR/dictation software use and do not reflect on the overall quality of patient care. Note that the electronic time recorded on this note does not necessarily reflect the actual time of the patient encounter. Departure Diagnosis: Primary Impression: Severe sepsis Additional Impressions: UTI (urinary tract infection) Urinary tract infection type: acute cystitis Hematuria presence: without hematuria Qualified Codes: N30.00 - Acute cystitis without hematuria Nausea & vomiting Vomiting type: unspecified Vomiting Intractability: non-intractable Qualified Codes: R11.2 - Nausea with vomiting, unspecified Suprapubic pain Fever Fever type: unspecified Qualified Codes: R50.9 - Fever, unspecified Tachycardia Lactic acidosis Pneumobilia Condition: Serious EKTA PALACIOS MD Jan 28, 2019 13:01
[2019-01-28] MEDS ORDERED: ACETAMINOPHEN 325 MG TAB PO PRN (13:30)
[2019-01-28] MEDS ORDERED: ONDANSETRON 4 MG INJ IV PRN ×2 (13:30→15:00)
[2019-01-28] MEDS ORDERED: NACL 0.9% 3 ML SYG IV SCH (15:00)
[2019-01-28] MEDS ORDERED: GLUCAGON 1 MG INJ IM PRN (15:00)
[2019-01-28] MEDS ORDERED: LORAZEPAM 2 MG INJ IV PRN (15:00)
[2019-01-28] MEDS ORDERED: morphine 2 MG INJ IV PRN (15:00)
[2019-01-28] MEDS ORDERED: HYDROCODONE/APAP (5/325) TAB PO PRN (15:00)
[2019-01-28] MEDS ORDERED: GLUCOSE GEL 15 GRAM TUBE PO PRN ×2 (15:00)
[2019-01-28] MEDS ORDERED: MAGNESIUM HYDROXIDE 30ML CUP PO PRN (15:00)
[2019-01-28] MEDS ORDERED: DOCUSATE SODIUM 100 MG CAP PO PRN (15:00)
[2019-01-28] MEDS ORDERED: DEXTROSE 50% 50 ML SYRINGE IV PRN ×2 (15:00)
[2019-01-28] MEDS ORDERED: NITROGLYCERIN (SL) 0.4 MG TAB SL PRN (15:00)
[2019-01-28] MEDS ORDERED: GLUCOSE GEL 15 GRAM TUBE BUCCAL PRN (15:00)
[2019-01-28] MEDS ORDERED: ALBUTEROL/IPRATROPIUM (NEB) 3 ML AMP HHN PRN (15:00)
--- NOTE | 2019-01-28 16:16 | HP ---
DATE OF ADMISSION: 01/28/2019 CHIEF COMPLAINT: Abdominal pain, vomiting and fever. HISTORY OF PRESENT ILLNESS: A 78-year-old female with past medical history of high blood pressure, h igh cholesterol, diabetes, prior cholecystectomy, with biliary stent placement, who has been having s ome fever and chills at home. She is also complaining of some abdominal pain. She has also had some nausea symptoms, nonbilious, nonbloody vomiting and symptoms have been going on for the last 3 or 4 days. Denies any upper or lower GI bleeding, no diarrhea or constipation. No chest pain, no shortne ss of breath. She also has been feeling some mild headache symptoms and decreased p.o. intake. When she came in today, she was found with slightly elevated white blood cell count of 11,000. Her lacti c acid was elevated at 2.1. She also had a fever of 102.3 and her UA showed signs of positive nitrit es, signs of UTI and she was given antibiotics in the ER. She also had an abdominal ultrasound perfo rmed that showed status post cholecystectomy with physiological dilation of the CBD and air within th e biliary tree, CBD stent not visualized by ultrasound, simple cyst in the right kidney. Her LFTs ap pear to be normal. PAST MEDICAL HISTORY: As above. ALLERGIES: No known drug allergies. MEDICATIONS AT HOME: 1. Atorvastatin 10 mg at bedtime. 2. Toprol-XL 25 mg daily. 3. Bas glargine insulin 16 units daily. 4. Metformin 850 mg b.i.d. PAST SURGICAL HISTORY: The patient has a cholecystectomy in the past and hysterectomy in the past. SOCIAL HISTORY: Negative for smoking, drinking, or IV drug use. FAMILY HISTORY: Positive for diabetes. PHYSICAL EXAMINATION: VITAL SIGNS: T-max 102.3. Pulse 124 to 88, respirations 18 to 20, blood pressure is 142 to 100 syst olic over 63 to 58 diastolic, satting at 98% through his nasal cannula. GENERAL: The patient is lying in bed, family members at the bedside. No acute distress. HEENT: Pupils equal, round, react to light. Extraocular muscles intact. NECK: Supple, no thyromegaly. LUNGS: Clear to auscultation bilaterally. CARDIOVASCULAR: S1, S2 heard. No murmurs, rubs or gallops. ABDOMEN: Mild tenderness to palpation in the epigastric and suprapubic area, otherwise no rebound or guarding. Normal bowel sounds otherwise. MUSCULOSKELETAL: No lower extremity edema bilaterally. NEUROLOGIC: No apparent focal deficits. LABORATORIES: WBC 10.9, hemoglobin 13.3, hematocrit 40.8, platelets 239. The comprehensive metaboli c panel was normal. Again, the lactic acid is a little high at 2.1. ASSESSMENT AND PLAN: A 78-year-old female coming in with nausea, vomiting, abdominal pain, fevers, a nd chills, signs of sepsis secondary to UTIs. 1. Sepsis secondary to urinary tract infection, again, patient had fevers and chills, nausea, vomiti ng symptoms, decreased p.o. intake. UA positive for UTI, so admit the patient, put her on broad spec trum antibiotics, get TSH, A1c, lipid panel. We also get PT and OT, speech therapy consult. Follow up final culture results. Low dose IV fluids, Tylenol p.r.n. pain and fevers. If his symptoms worse n, consider ID consult. Follow up final culture results. 2. History of diabetes. Continue bas glargine insulin, both sliding scale insulin on board as well. Follow up A1c. 3. History of high cholesterol. Follow up lipid panel. Continue statin. 4. Hypertension. Blood pressure stable. Continue to monitor for now. 5. Hydralazine p.r.n. systolic greater than 160. 6. Gastrointestinal prophylaxis with PPI and deep venous thrombosis prophylaxis, heparin subcu. Dictated By: ZORAIDA MORALES Conf#: [id number] DID#: [id number]
[2019-01-28] MEDS: SOD CHLORIDE 0.45% 1,000 ML IV SCH (16:23)
[2019-01-28 17:15] VITALS: BP 114/56; PULSE 85; RESP 18
[2019-01-28] MEDS: CIPROFLOXACIN 0.3% 2.5 ML OPH BOTH EYES SCH (17:20)
[2019-01-28] MEDS: INSULIN ASPART [NOVOLOG] 3 ML PEN SC SCH ×2 (18:09→21:00)
[2019-01-28] MEDS: PIPER-TAZO 3.375 GM IV (PMX) 100 ML IVPB SCH (18:10)
[2019-01-28 18:33] VITALS: Ht 152.4 cm; Wt 50.5 kg
[2019-01-28 20:00] VITALS: BP 119/64; PULSE 86; RESP 16
[2019-01-28] MEDS: ACETAMINOPHEN 325 MG TAB PO PRN (21:23)
[2019-01-28] MEDS: ATORVASTATIN 10 MG TAB PO SCH (21:23)
[2019-01-28] MEDS: HEPARIN 5,000 UNIT/1 ML VIAL SC SCH (21:27)
[2019-01-29] MEDS: PIPER-TAZO 3.375 GM IV (PMX) 100 ML IVPB SCH ×4 (00:15→18:11)
[2019-01-29] MEDS: ACCU-CHEK XX SCH (02:00)
[2019-01-29] MEDS: INSULIN ASPART [NOVOLOG] 3 ML PEN SC SCH ×6 (02:00→20:54)
[2019-01-29 02:17] VITALS: BP 98/57; PULSE 70; RESP 16
[2019-01-29] MEDS: SOD CHLORIDE 0.45% 1,000 ML IV SCH ×2 (03:53→09:55)
[2019-01-29] MEDS: PANTOPRAZOLE (EC) 40 MG TAB PO SCH (05:15)
[2019-01-29 07:46] VITALS: BP 118/59; PULSE 80; RESP 18
[2019-01-29] MEDS: METOPROLOL (XL) 25 MG TAB PO SCH (08:22)
[2019-01-29] MEDS: INSULIN GLARGINE [LANTus] (100 UNITS/ML) SYG SC SCH (08:24)
[2019-01-29] MEDS: HEPARIN 5,000 UNIT/1 ML VIAL SC SCH ×2 (08:24→20:58)
[2019-01-29] MEDS: CIPROFLOXACIN 0.3% 2.5 ML OPH BOTH EYES SCH ×2 (09:00→10:49)
[2019-01-29] MEDS ORDERED: INSULIN GLARGINE [LANtus] 3 ML PEN SC SCH (09:00)
[2019-01-29] MEDS: GUAIFENESIN 20 MG/ML 5ML CUP PO PRN (10:48)
--- NOTE | 2019-01-29 13:58 | PN ---
Date/Time of Note Date/Time of Note DATE: 01/29/19 TIME: 13:53 Assessment/Plan VTE Prophylaxis Risk score (from Ns)>0 risk: 2 SCD applied (from Ns): No SCD contraindicated: other Pharmacological prophylaxis: heparin Lines/Catheters IV Catheter Type (from [facility]): Peripheral IV Assessment/Plan Hospital Course S: Patient had no fevers overnight. Still complaining of some headache sympt oms. Seen by speech therapy physical therapy teams earlier today. O: VS - see below PHYSICAL EXAMINATION: GENERAL: lying in bed, family members at the bedside. No acute distress. HEENT: Pupils equal, round, react to light. Extraocular muscles intact. NECK: Supple, no thyromegaly. LUNGS: Clear to auscultation bilaterally. CARDIOVASCULAR: S1, S2 heard. No murmurs, rubs or gallops. ABDOMEN: Mild tenderness to palpation in the epigastric and suprapubic area, otherwise no rebound or guarding. Normal bowel sounds otherwise. MUSCULOSKELETAL: No lower extremity edema bilaterally. NEUROLOGIC: No apparent focal deficits. ASSESSMENT AND PLAN: 78-year-old female coming in with nausea, vomiting, abdominal pain, fevers, and chills, signs of sepsis secondary to UTIs. 1. Sepsis secondary to urinary tract infection-slowly improving. No fevers overnight. White blood cell count more improved today. Patient initially presented with fevers and chills, nausea, vomiting symptoms, decreased p.o. intake. UA positive for UTI -For now continue broad spectrum antibiotics, -Continue PT and OT, speech therapy consult. Follow up final culture results. -Continue low dose IV fluids, Tylenol p.r.n. pain and fevers. -Given headache symptoms, and some numbness symptoms, will go ahead and order head CT rule out TIA versus other 2. History of diabetes-sugar stable, A1c equals 7.8 -Continue glargine insulin, both sliding scale insulin 3. History of high cholesterol.- Continue statin. 4. Hypertension. Blood pressure stable. - Continue to monitor for now. - Hydralazine p.r.n. systolic greater than 160. 6. Gastrointestinal prophylaxis with PPI and deep venous thrombosis prophylaxis, heparin subcu. Result Diagram: 01/29/1924 01/29/1924 Results 24hrs Laboratory Tests Test 01/28/19 14:20 01/28/19 18:08 01/28/19 20:19 01/28/19 21:25 Lactic Acid Level 0.8 1.1 Lipase 78 Free Thyroxine 1.56 Bedside Glucose 135 125 Test 01/29/19 02:16 01/29/19 02:42 01/29/19 05:14 01/29/19 05:24 Bedside Glucose 99 104 Lactic Acid Level 0.7 White Blood Count 8.1 # Red Blood Count 3.69 L Hemoglobin 11.1 L Hematocrit 35.0 L Mean Corpuscular 94.9 Volume Mean Corpuscular 30.1 Hemoglobin Mean Corpuscular 31.7 L Hemoglobin Concent Red Cell 13.7 Distribution Width Platelet Count 211 Mean Platelet Volume 9.7 Immature 0.400 Granulocytes % Neutrophils % 74.4 Lymphocytes % 16.5 Monocytes % 7.2 Eosinophils % 1.1 Basophils % 0.4 Nucleated Red Blood 0.0 Cells % Immature 0.030 Granulocytes # Neutrophils # 6.1 Lymphocytes # 1.3 Monocytes # 0.6 Eosinophils # 0.1 Basophils # 0.0 Nucleated Red Blood 0.0 Cells # Sodium Level 139 Potassium Level 4.1 Chloride Level 109 Carbon Dioxide Level 22 Anion Gap 8 Blood Urea Nitrogen 16 Creatinine 0.88 Est Glomerular Filtrat Rate mL/min Glucose Level 102 # Hemoglobin A1c 7.8 H Calcium Level 7.9 L Phosphorus Level 2.8 Magnesium Level 1.8 Triglycerides Level 110 Cholesterol Level 77 L LDL Cholesterol, 36 Calculated HDL Cholesterol 19 L Cholesterol/HDL 4.0 Ratio Thyroid Stimulating 1.750 Hormone (TSH) Test 01/29/19 08:20 01/29/19 08:42 01/29/19 13:39 Bedside Glucose 85 127 Lactic Acid Level 1.2 Exam/Review of Systems Exam Vitals Vital Signs Date Temp Pulse Resp B/P (MAP) Pulse Ox O2 O2 Flow FiO2 Time Delivery Rate 01/29/19 98.3 80 18 118/59 99 07:46 (78) 01/28/19 Nasal 2.0 18:37 Cannula Intake and Output 01/28/19 01/28/19 01/29/19 1515:00 23:00 07:00 IntakeIntake Total 1820 ml 950 ml BalanceBalance 1820 ml 950 ml Results Results 24hrs Laboratory Tests Test 01/28/19 14:20 01/28/19 18:08 01/28/19 20:19 01/28/19 21:25 Lactic Acid Level 0.8 1.1 Lipase 78 Free Thyroxine 1.56 Bedside Glucose 135 125 Test 01/29/19 02:16 01/29/19 02:42 01/29/19 05:14 01/29/19 05:24 Bedside Glucose 99 104 Lactic Acid Level 0.7 White Blood Count 8.1 # Red Blood Count 3.69 L Hemoglobin 11.1 L Hematocrit 35.0 L Mean Corpuscular 94.9 Volume Mean Corpuscular 30.1 Hemoglobin Mean Corpuscular 31.7 L Hemoglobin Concent Red Cell 13.7 Distribution Width Platelet Count 211 Mean Platelet Volume 9.7 Immature 0.400 Granulocytes % Neutrophils % 74.4 Lymphocytes % 16.5 Monocytes % 7.2 Eosinophils % 1.1 Basophils % 0.4 Nucleated Red Blood 0.0 Cells % Immature 0.030 Granulocytes # Neutrophils # 6.1 Lymphocytes # 1.3 Monocytes # 0.6 Eosinophils # 0.1 Basophils # 0.0 Nucleated Red Blood 0.0 Cells # Sodium Level 139 Potassium Level 4.1 Chloride Level 109 Carbon Dioxide Level 22 Anion Gap 8 Blood Urea Nitrogen 16 Creatinine 0.88 Est Glomerular Filtrat Rate mL/min Glucose Level 102 # Hemoglobin A1c 7.8 H Calcium Level 7.9 L Phosphorus Level 2.8 Magnesium Level 1.8 Triglycerides Level 110 Cholesterol Level 77 L LDL Cholesterol, 36 Calculated HDL Cholesterol 19 L Cholesterol/HDL 4.0 Ratio Thyroid Stimulating 1.750 Hormone (TSH) Test 01/29/19 08:20 01/29/19 08:42 01/29/19 13:39 Bedside Glucose 85 127 Lactic Acid Level 1.2 Medications Medication Current Medications IV Flush (NS 3 ml) 3 ml PER PROTOCOL IV ; Start 01/28/19 at 15:00 Ondansetron HCl (Zofran Inj) 4 mg Q6H PRN IV NAUSEA/VOMITING; Start 01/28/19 at 15:00 Acetaminophen (Tylenol Tab) 650 mg Q6H PRN PO .PAIN 1-3 OR TEMP Last administered on 01/28/19at 21:23; Admin Dose 650 MG; Start 01/28/19 at 15:00 Acetaminophen/ Hydrocodone Bitart ([place] (5/325)) 1 tab Q6H PRN PO .MOD PAIN 4- 6; Start 01/28/19 at 15:00 Morphine Sulfate (morphine) 2 mg Q4H PRN IV .SEVERE PAIN 7-10 Last administered on 01/29/19at 08:35; Admin Dose 2 MG; Start 01/28/19 at 15:00 Docusate Sodium (Colace) 100 mg Q12H PRN PO .CONSTIPATION Last administered on 01/29/19at 05:15; Admin Dose 100 MG; Start 01/28/19 at 15:00 Magnesium Hydroxide (Milk Of Mag) 30 ml DAILY PRN PO .CONSTIPATION; Start 01/28/19 at 15:00 Pantoprazole (Protonix Tab) 40 mg DAILY@06 PO Last administered on 01/29/19 05:15; Admin Dose 40 MG; Start 01/29/19 at 06:00 Heparin Sodium (Porcine) (Heparin (5000 Units/1ml)) 5,000 unit Q12 SC Last administered on 01/29/19at 08:24; Admin Dose 5,000 UNIT; Start 01/28/19 at 21:00 Sodium Chloride 1,000 ml @ 75 mls/hr [id number] IV Last administered on 01/29/19at 09:55; Admin Dose 75 MLS/HR; Start 01/28/19 at 14:33 Lorazepam (Ativan) 0.5 mg Q6H PRN IV ANXIETY; Start 01/28/19 at 15:00 Albuterol/ Ipratropium (Duoneb) 3 ml Q4H RESP THERAPY PRN HHN SHORTNESS OF BREATH; Start 01/28/19 at 15:00 Piperacillin Sod/ Tazobactam Sod 100 ml @ 200 mls/hr Q6 IVPB Last administered on 01/29/19at 12:23; Admin Dose 200 MLS/HR; Start 01/28/19 at 18:00 Nitroglycerin (Nitroglycerin (Sl Tab) 0.4 Mg) 1 tab Q5M PRN SL ANGINA; Start 01/28/19 at 15:00 Diagnostic Test (Pha) (Accu-Chek) 1 ea 02 XX ; Start 01/29/19 at 02:00 Insulin Aspart (Novolog Insulin Pen) NOVOLOG *MILD* ALGORI... Q4 SC ; Start 01/28/19 at 17:00 Atorvastatin Calcium (Lipitor) 10 mg QHS PO Last administered on 01/28/19at 21:23; Admin Dose 10 MG; Start 01/28/19 at 21:00 Metoprolol Succinate (Toprol Xl) 25 mg DAILY PO Last administered on 01/29/19at 08:22; Admin Dose 25 MG; Start 01/29/19 at 09:00 Miscellaneous Information 1 ea NOTE XX ; Start 01/28/19 at 15:00 Glucose (Glutose) 15 gm Q15M PRN PO DECREASED GLUCOSE; Start 01/28/19 at 15:00 Glucose (Glutose) 22.5 gm Q15M PRN PO DECREASED GLUCOSE; Start 01/28/19 at 15:00 Dextrose (D50w Syringe) 25 ml Q15M PRN IV DECREASED GLUCOSE; Start 01/28/19 at 15:00 Dextrose (D50w Syringe) 50 ml Q15M PRN IV DECREASED GLUCOSE; Start 01/28/19 at 15:00 Glucagon (Glucagen) 1 mg Q15M PRN IM DECREASED GLUCOSE; Start 01/28/19 at 15:00 Glucose (Glutose) 15 gm Q15M PRN BUCCAL DECREASED GLUCOSE; Start 01/28/19 at 15:00 Insulin Glargine (Lantus) 16 units DAILY SC Last administered on 01/29/19at 08:24; Admin Dose 16 UNITS; Start 01/29/19 at 09:00 Ciprofloxacin HCl (Ciloxan 0.3% Oph) 1 drop DAILY BOTH EYES Last administered on 01/29/19at 10:49; Admin Dose 1 DROP; Start 01/28/19 at 16:00 Guaifenesin (Robitussin Liquid Cup) 200 mg Q4H PRN PO COUGH Last administered on 01/29/19at 10:48; Admin Dose 200 MG; Start 01/29/19 at 10:30 ZORAIDA DICKEY Jan 29, 2019 13:58
[2019-01-29 14:09] VITALS: BP 108/56; PULSE 76; RESP 18
[2019-01-29] MEDS ORDERED: TRIMETHOBENZAMIDE 100 MG/ML VIAL IM PRN (17:30)
[2019-01-29 19:38] VITALS: BP 118/57; PULSE 67; RESP 16
[2019-01-29] MEDS: ATORVASTATIN 10 MG TAB PO SCH (20:54)
[2019-01-30] MEDS: PIPER-TAZO 3.375 GM IV (PMX) 100 ML IVPB SCH ×4 (00:15→17:55)
[2019-01-30] MEDS: SOD CHLORIDE 0.45% 1,000 ML IV SCH ×2 (01:07→17:56)
[2019-01-30] MEDS: ACCU-CHEK XX SCH (01:07)
[2019-01-30 01:40] VITALS: BP 116/59; PULSE 70; RESP 16
[2019-01-30] MEDS: PANTOPRAZOLE (EC) 40 MG TAB PO SCH ×2 (05:29→08:31)
[2019-01-30 07:31] VITALS: BP 118/58; PULSE 72; RESP 18
[2019-01-30] MEDS: INSULIN ASPART [NOVOLOG] 3 ML PEN SC SCH ×4 (08:00→21:00)
[2019-01-30] MEDS: CIPROFLOXACIN 0.3% 2.5 ML OPH BOTH EYES SCH (08:30)
[2019-01-30] MEDS: METOPROLOL (XL) 25 MG TAB PO SCH (08:31)
[2019-01-30] MEDS: INSULIN GLARGINE [LANTus] (100 UNITS/ML) SYG SC SCH (09:20)
[2019-01-30] MEDS: HEPARIN 5,000 UNIT/1 ML VIAL SC SCH ×2 (09:20→20:42)
--- NOTE | 2019-01-30 12:50 | PN ---
Date/Time of Note Date/Time of Note DATE: 01/30/19 TIME: 12:49 Assessment/Plan VTE Prophylaxis Risk score (from Ns)>0 risk: 4 SCD applied (from Ns): No SCD contraindicated: other Pharmacological prophylaxis: heparin Lines/Catheters IV C[facility] (from [facility] Peripheral IV Assessment/Plan Hospital Course S: Patient more awake and alert. No headache symptoms presently. Head CT re sults reviewed. O: VS - see below PHYSICAL EXAMINATION: GENERAL: lying in bed, family members at the bedside. No acute distress. HEENT: Pupils equal, round, react to light. Extraocular muscles intact. NECK: Supple, no thyromegaly. LUNGS: Clear to auscultation bilaterally. CARDIOVASCULAR: S1, S2 heard. No murmurs, rubs or gallops. ABDOMEN: Mild tenderness to palpation in the epigastric and suprapubic area, otherwise no rebound or guarding. Normal bowel sounds otherwise. MUSCULOSKELETAL: No lower extremity edema bilaterally. NEUROLOGIC: No apparent focal deficits. ASSESSMENT AND PLAN: 78-year-old female coming in with nausea, vomiting, abdominal pain, fevers, and chills, signs of sepsis secondary to UTIs. 1. Sepsis secondary to urinary tract infection-slowly improving. No fevers overnight. White blood cell count more improved. Patient initially presented with fevers and chills, nausea, vomiting symptoms, decreased p.o. intake. UA positive for UTI -For now continue broad spectrum antibiotics, -Continue PT and OT, speech therapy consult. Follow up final culture results. -Continue low dose IV fluids, Tylenol p.r.n. pain and fevers. 2. History of diabetes-sugar stable, A1c equals 7.8 -Continue glargine insulin, both sliding scale insulin 3. History of high cholesterol.- Continue statin. 4. Hypertension. Blood pressure stable. - Continue to monitor for now. - Hydralazine p.r.n. systolic greater than 160. 6. Gastrointestinal prophylaxis with PPI and deep venous thrombosis prophylaxis, heparin subcu. Dispo: Likely home in 24 hours if her labs continue to improve; patient is able to ambulate with less assistance. Result Diagram: 01/30/19 0525 01/30/19 0525 Results 24hrs Laboratory Tests Test 01/29/19 13:39 01/29/19 18:10 01/29/19 20:54 01/30/19 05:25 Bedside Glucose 127 111 132 White Blood Count 7.6 Red Blood Count 3.55 L Hemoglobin 11.1 L Hematocrit 33.2 L Mean Corpuscular Volume 93.5 Mean Corpuscular 31.3 Hemoglobin Mean Corpuscular 33.4 Hemoglobin Concent Red Cell Distribution 13.0 Width Platelet Count 260 # Mean Platelet Volume 9.8 Immature Granulocytes % 0.500 H Neutrophils % 71.3 Lymphocytes % 21.9 Monocytes % 5.7 Eosinophils % 0.5 Basophils % 0.1 Nucleated Red Blood 0.0 Cells % Immature Granulocytes # 0.040 H Neutrophils # 5.4 Lymphocytes # 1.7 Monocytes # 0.4 Eosinophils # 0.0 Basophils # 0.0 Nucleated Red Blood 0.0 Cells # Sodium Level 137 Potassium Level 4.2 Chloride Level 108 Carbon Dioxide Level 20 L Anion Gap 9 Blood Urea Nitrogen 15 Creatinine 0.79 Est Glomerular Filtrat Rate mL/min Glucose Level 86 Calcium Level 8.2 L Test 01/30/19 08:28 Bedside Glucose 72 Exam/Review of Systems Exam Vitals Vital Signs Date Temp Pulse Resp B/P (MAP) Pulse Ox O2 O2 Flow FiO2 Time Delivery Rate 01/30/19 Nasal 2.0 08:20 Cannula 01/30/19 98.5 72 18 118/58 97 07:31 (78) Intake and Output 01/29/19 01/29/19 01/30/19 1515:00 23:00 07:00 IntakeIntake Total 350 ml 865 ml 1295 ml BalanceBalance 350 ml 865 ml 1295 ml Results Results 24hrs Laboratory Tests Test 01/29/19 13:39 01/29/19 18:10 01/29/19 20:54 01/30/19 05:25 Bedside Glucose 127 111 132 White Blood Count 7.6 Red Blood Count 3.55 L Hemoglobin 11.1 L Hematocrit 33.2 L Mean Corpuscular Volume 93.5 Mean Corpuscular 31.3 Hemoglobin Mean Corpuscular 33.4 Hemoglobin Concent Red Cell Distribution 13.0 Width Platelet Count 260 # Mean Platelet Volume 9.8 Immature Granulocytes % 0.500 H Neutrophils % 71.3 Lymphocytes % 21.9 Monocytes % 5.7 Eosinophils % 0.5 Basophils % 0.1 Nucleated Red Blood 0.0 Cells % Immature Granulocytes # 0.040 H Neutrophils # 5.4 Lymphocytes # 1.7 Monocytes # 0.4 Eosinophils # 0.0 Basophils # 0.0 Nucleated Red Blood 0.0 Cells # Sodium Level 137 Potassium Level 4.2 Chloride Level 108 Carbon Dioxide Level 20 L Anion Gap 9 Blood Urea Nitrogen 15 Creatinine 0.79 Est Glomerular Filtrat Rate mL/min Glucose Level 86 Calcium Level 8.2 L Test 01/30/19 08:28 Bedside Glucose 72 Medications Medication Current Medications IV Flush (NS 3 ml) 3 ml PER PROTOCOL IV ; Start 01/28/19 at 15:00 Ondansetron HCl (Zofran Inj) 4 mg Q6H PRN IV NAUSEA/VOMITING Last administered on 01/29/19 17:28; Admin Dose 4 MG; Start 01/28/19 at 15:00 Acetaminophen (Tylenol Tab) 650 mg Q6H PRN PO .PAIN 1-3 OR TEMP Last administered on 01/28/19 21:23; Admin Dose 650 MG; Start 01/28/19 at 15:00 Acetaminophen/ Hydrocodone Bitart ([place] (5/325)) 1 tab Q6H PRN PO .MOD PAIN 4- 6 Last administered on 01/29/19 15:29; Admin Dose 1 TAB; Start 01/28/19 at 15:00 Docusate Sodium (Colace) 100 mg Q12H PRN PO .CONSTIPATION Last administered on 01/29/19 05:15; Admin Dose 100 MG; Start 01/28/19 at 15:00 Magnesium Hydroxide (Milk Of Mag) 30 ml DAILY PRN PO .CONSTIPATION; Start 01/28/19 at 15:00 Pantoprazole (Protonix Tab) 40 mg DAILY@06 PO Last administered on 01/30/19 08:31; Admin Dose 40 MG; Start 01/29/19 at 06:00 Heparin Sodium (Porcine) (Heparin (5000 Units/1ml)) 5,000 unit Q12 SC Last administered on 01/30/19 09:20; Admin Dose 5,000 UNIT; Start 01/28/19 at 21:00 Sodium Chloride 1,000 ml @ 75 mls/hr [id number] IV Last administered on 01/30/19 01:07; Admin Dose 75 MLS/HR; Start 01/28/19 at 14:33 Lorazepam (Ativan) 0.5 mg Q6H PRN IV ANXIETY; Start 01/28/19 at 15:00 Albuterol/ Ipratropium (Duoneb) 3 ml Q4H RESP THERAPY PRN HHN SHORTNESS OF BREATH; Start 01/28/19 at 15:00 Piperacillin Sod/ Tazobactam Sod 100 ml @ 200 mls/hr Q6 IVPB Last administered on 01/30/19at 05:29; Admin Dose 200 MLS/HR; Start 01/28/19 at 18:00 Nitroglycerin (Nitroglycerin (Sl Tab) 0.4 Mg) 1 tab Q5M PRN SL ANGINA; Start 01/28/19 at 15:00 Diagnostic Test (Pha) (Accu-Chek) 1 ea 02 XX ; Start 01/29/19 at 02:00 Atorvastatin Calcium (Lipitor) 10 mg QHS PO Last administered on 01/29/19at 20:54; Admin Dose 10 MG; Start 01/28/19 at 21:00 Metoprolol Succinate (Toprol Xl) 25 mg DAILY PO Last administered on 01/30/19at 08:31; Admin Dose 25 MG; Start 01/29/19 at 09:00 Miscellaneous Information 1 ea NOTE XX ; Start 01/28/19 at 15:00 Glucose (Glutose) 15 gm Q15M PRN PO DECREASED GLUCOSE; Start 01/28/19 at 15:00 Glucose (Glutose) 22.5 gm Q15M PRN PO DECREASED GLUCOSE; Start 01/28/19 at 15:00 Dextrose (D50w Syringe) 25 ml Q15M PRN IV DECREASED GLUCOSE; Start 01/28/19 at 15:00 Dextrose (D50w Syringe) 50 ml Q15M PRN IV DECREASED GLUCOSE; Start 01/28/19 at 15:00 Glucagon (Glucagen) 1 mg Q15M PRN IM DECREASED GLUCOSE; Start 01/28/19 at 15:00 Glucose (Glutose) 15 gm Q15M PRN BUCCAL DECREASED GLUCOSE; Start 01/28/19 at 15:00 Insulin Glargine (Lantus) 16 units DAILY SC Last administered on 01/30/19at 09:20 ; Admin Dose 16 UNITS; Start 01/29/19 at 09:00 Ciprofloxacin HCl (Ciloxan 0.3% Oph) 1 drop DAILY BOTH EYES Last administered on 01/30/19at 08:30; Admin Dose 1 DROP; Start 01/28/19 at 16:00 Guaifenesin (Robitussin Liquid Cup) 200 mg Q4H PRN PO COUGH Last administered on 01/29/19at 10:48; Admin Dose 200 MG; Start 01/29/19 at 10:30 Insulin Aspart (Novolog Insulin Pen) NOVOLOG *MILD* ALGORITHM WITH MEALS BEDTIME SC ; Start 01/29/19 at 18:00 Trimethobenzamide HCl (Tigan) 200 mg Q6H PRN IM NAUSEA AND/OR VOMITING; Start 01/29/19 at 17:30 ZORAIDA DICKEY Jan 30, 2019 12:50
[2019-01-30 14:26] VITALS: BP 125/56; PULSE 67; RESP 20
[2019-01-30 20:00] VITALS: BP 118/57; PULSE 76; RESP 18
[2019-01-30] MEDS: ATORVASTATIN 10 MG TAB PO SCH (20:36)
[2019-01-30] MEDS: ACETAMINOPHEN 325 MG TAB PO PRN (20:36)
[2019-01-30] MEDS: GUAIFENESIN 20 MG/ML 5ML CUP PO PRN (20:36)
[2019-01-31] MEDS: PIPER-TAZO 3.375 GM IV (PMX) 100 ML IVPB SCH ×3 (00:59→13:21)
[2019-01-31] MEDS: ACCU-CHEK XX SCH (02:00)
[2019-01-31 02:12] VITALS: BP 106/56; PULSE 67; RESP 16
[2019-01-31 07:36] VITALS: BP 128/60; PULSE 71; RESP 20
[2019-01-31] MEDS: INSULIN ASPART [NOVOLOG] 3 ML PEN SC SCH ×2 (08:00→13:25)
[2019-01-31] MEDS: GUAIFENESIN 20 MG/ML 5ML CUP PO PRN ×2 (08:12→12:40)
[2019-01-31] MEDS: METOPROLOL (XL) 25 MG TAB PO SCH (08:13)
[2019-01-31] MEDS: INSULIN GLARGINE [LANTus] (100 UNITS/ML) SYG SC SCH (08:26)
[2019-01-31] MEDS: HEPARIN 5,000 UNIT/1 ML VIAL SC SCH (08:26)
[2019-01-31] MEDS: CIPROFLOXACIN 0.3% 2.5 ML OPH BOTH EYES SCH (10:28)
[2019-01-31] MEDS: SOD CHLORIDE 0.45% 1,000 ML IV SCH (10:29)
--- NOTE | 2019-01-31 13:53 | PDOCDIS ---
Discharge Instructions CONDITION [id number] Patient Condition: [id number] Stable HOME CARE INSTRUCTIONS: [id number] Diet Instructions: [id number] Low Fat /Cholesterol ACTIVITY: [id number] Activity Restrictions: [id number] Slowly Increase Activity Rest between Activity Avoid heavy lifting FOLLOW UP/APPOINTMENTS Follow-up Plan Please take your medications as prescribed, see your doctor in the clinic in the next 1 week. ZORAIDA DICKEY Jan 31, 2019 13:53
[2019-01-31] MEDS ORDERED: LEVO500T48 PO (13:54)
[2019-01-31] MEDS ORDERED: CIPR2.5D11 BOTH EYES (13:54)
[2019-01-31] MEDS ORDERED: GUAI-637 PO (13:54)
--- NOTE | 2019-01-31 13:58 | DS ---
Date/Time of Note Date/Time of Note DATE: 01/31/19 TIME: 13:57 Discharge Summary Admission/Discharge Info Admit Date/Time Jan 28, 2019 at 13:24 Discharge Date/Time Discharge Diagnosis 1. Sepsis secondary to urinary tract infection-resolved 2. History of diabetes-sugar stable, A1c equals 7.8 3. History of high cholesterol 4. Hypertension Patient Condition: Stable Hx of Present Illness 78-year-old female with past medical history of high blood pressure, high cholesterol, diabetes, prior cholecystectomy, with biliary stent placement, who has been having some fever and chills at home. She is also complaining of some abdominal pain. She has also had some nausea symptoms, nonbilious, nonbloody vomiting and symptoms have been going on for the last 3 or 4 days. Denies any upper or lower GI bleeding, no diarrhea or constipation. No chest pain, no shortness of breath. She also has been feeling some mild headache symptoms and decreased p.o. intake. When she came in today, she was found with slightly elevated white blood cell count of 11,000. Her lactic acid was elevated at 2.1. She also had a fever of 102.3 and her UA showed signs of positive nitrites, signs of UTI and she was given antibiotics in the ER. She also had an abdominal ultrasound performed that showed status post cholecystectomy with physiological dilation of the CBD and air within the biliary tree, CBD stent not visualized by ultrasound, simple cyst in the right kidney. Her LFTs appear to be normal. Hospital Course Patient was admitted to medical surgical unit. Found with E. coli urinary tract infection. Patient placed on IV fluids and antibiotics. She also had some dry cough symptoms that was relieved with the antitussive medicines. Her white blood cell count improved, no fevers, she was able to ambulate after being seen by physical therapy team, with assistance. She was able to tolerate diet. She will be discharged home later today and in improved condition with some home health PT being set up as well. See below for full list of discharge medications. Home Meds Active Scripts Levofloxacin* (Levaquin*) 500 Mg Tablet, 500 MG PO DAILY for 7 Days, #7 TAB Prov:ZORAIDA DICKEY 01/31/19 Ciprofloxacin Hcl (Ciprofloxacin Hcl) 2.5 Ml Drops, 1 DROP BOTH EYES DAILY for 3 Days, #1 BOTTLE Prov:ZORAIDA DICKEY. 01/31/19 Guaifenesin (Guaifenesin) 100 Mg/5 Ml Liquid, 200 MG PO Q4H PRN for COUGH, #1 BOTTLE Prov:ZORAIDA DICKEY S. 01/31/19 Reported Medications Insulin Glargine,Hum.rec.anlog (Basaglar Kwikpen U-100) 100 Unit/1 Ml Insuln.pe n, 16 UNIT SC DAILY, EA 03/26/18 Metoprolol Succinate* (Toprol XL*) 25 Mg Tab.sr.24h, 25 MG PO DAILY, #30 TAB 03/26/18 Atorvastatin Calcium (Atorvastatin Calcium) 10 Mg Tablet, 10 MG PO QHS, #30 TAB 03/26/18 Metformin* (Glucophage*) 850 Mg Tablet, 850 MG PO BID WITH MEALS, #30 TAB 03/26/18 Discontinued Scripts Cephalexin* (Keflex*) 500 Mg Capsule, 500 MG PO TID for 5 Days, CAP Prov:BERLIN GREEN MD 04/27/18 Follow-up Plan Please take your medications as prescribed, see your doctor in the clinic in the next 1 week. Primary Care Provider Care Physician No Primary Time spent on discharge: > 30 minutes Pending Labs Laboratory Tests Test 01/30/19 17:46 01/30/19 20:34 01/31/19 05:29 01/31/19 08:12 Bedside 199 180 121 Glucose mg/dL (70-220) mg/dL (70-220) mg/dL (70-220) White Blood 5.3 Count 10^3/ul (4.8-1 0.8) Red Blood 3.53 Count 10^6/ul (4.20- 5.40) Hemoglobin 10.7 g/dl (12.0-16. 0) Hematocrit 32.4 % (37.0-47.0) Mean 91.8 Corpuscular fl (82.0-101.0 Volume ) Mean 30.3 Corpuscular pg (29.0-33.0) Hemoglobin Mean 33.0 Corpuscular g/dl (32.0-37. Hemoglobin Conc 0) ent Red Cell 13.2 Distribution % (11.5-14.5) Width Platelet Count 280 10^3/UL (140-4 15) Mean Platelet 9.8 Volume fl (7.4-10.4) Immature 0.400 Granulocytes % % (0.001-0.429 ) Neutrophils % 65.3 % (39.0-77.0) Lymphocytes % 23.5 % (15.0-51.0) Monocytes % 8.5 % (0.0-11.0) Eosinophils % 1.9 % (0.0-7.0) Basophils % 0.4 % (0.0-2.0) Nucleated Red 0.0 Blood Cells % /100WBC (0.0-0 .0) Immature 0.020 Granulocytes # 10^3/ul (0.0-0 .031) Neutrophils # 3.5 10^3/ul (1.6-7 .5) Lymphocytes # 1.3 10^3/ul (0.8-2 .9) Monocytes # 0.5 10^3/ul (0.3-0 .9) Eosinophils # 0.1 10^3/ul (0.0-0 .5) Basophils # 0.0 10^3/ul (0.0-0 .1) Nucleated Red 0.0 Blood Cells # 10^3/ul (0.0-0 .0) Sodium Level 139 mmol/L (135-14 4) Potassium 3.9 Level mmol/L (3.5-5. 1) Chloride Level 111 mmol/L (97-110 ) Carbon Dioxide 20 Level mmol/L (21-31) Anion Gap 8 (5-13) Blood Urea 13 Nitrogen mg/dl (7-20) Creatinine 0.90 mg/dl (0.44-1. 00) Est Glomerular mL/min (>60) Filtrat Rate mL/min Glucose Level 112 mg/dl (70-220) Calcium Level 8.3 mg/dl (8.4-10. 2) Test 01/31/19 12:31 Bedside 165 Glucose mg/dL (70-220) ZORAIDA DICKEY Jan 31, 2019 13:58
[2019-01-31 14:17] VITALS: BP 111/55; PULSE 91; RESP 20
== END 2019-01-31 15:50 | disposition home health service (06) | DRG 872 ==
LOC: E/R 09:45 → 2NE 13:24
PROVIDERS: ADMIT Hospitalist; ATTEND Hospitalist
DX: A41.9 Sepsis, unspecified organism (principal); N39.0 Urinary tract infection, site not specified; E11.9 Type 2 diabetes mellitus without complications; I10 Essential (primary) hypertension; Z79.4 Long term (current) use of insulin; E78.00 Pure hypercholesterolemia, unspecified; Z90.49 Acquired absence of other specified parts of digestive tract
CPT/HCPCS: 36415; 70450; 71045; 76705; 80048; 80053; 80061; 81001; 82962; 83036; 83605; 83690; 83735; 84100; 84439; 84443; 84484; 85025; 85610; 85730; 87040; 87086; 87400; 92610; 93005; 96365; 96366; 96367; 96375; 97162; 97167; J0692; J1644; J1815; J1885; J2270; J2405; J2543; J3250; J3370; J7030

== ENCOUNTER 2019-05-02 19:19 | Emergency (ER) | payer OTHER ==
[~2019-05-02] VITALS: Ht 142.2 cm; Wt 51.2 kg
[~2019-05-02 19:19] MED LIST changes: -CEPH-443 PO; +CIPR2.5D11 BOTH EYES; +GUAI-637 PO; +LEVO500T48 PO
[2019-05-02 19:20] VITALS: Ht 142.2 cm; Wt 51.2 kg
[2019-05-02] MEDS ORDERED: HYDROCODONE/APAP (5/325) TAB PO ONE (22:00)
[2019-05-02] MEDS ORDERED: TRAM50TA2 PO (22:20)
--- NOTE | 2019-05-02 22:26 | ERD ---
ER Documentation Chief Complaint Chief Complaint L ANKLE PAIN, HEAD PAIN S/P GLF HPI Is a very pleasant 78-year-old female suffered a mechanical fall she slipped out of her chair and fell onto her left ankle her head. She denies loss of consciousness. She does complain of left ankle pain and inability to weight- bear. She denies any fevers or chills. Denies any nausea vomiting. Denies any other current complaints. Pain is mild to moderate intensity with no exacerbating living factors. ROS All systems reviewed and are negative except as per history of present illness. Medications Home Meds Active Scripts Tramadol HCl (Tramadol HCl) 50 Mg Tablet, 50 MG PO Q4 PRN for PAIN, #20 TAB Prov:DARYL GONZALEZ S. 05/02/19 Levofloxacin* (Levaquin*) 500 Mg Tablet, 500 MG PO DAILY for 7 Days, #7 TAB Prov:ZORAIDA DICKEY S. 01/31/19 Ciprofloxacin Hcl (Ciprofloxacin Hcl) 2.5 Ml Drops, 1 DROP BOTH EYES DAILY for 3 Days, #1 BOTTLE Prov:ZORAIDA DICKEY S. 01/31/19 Guaifenesin (Guaifenesin) 100 Mg/5 Ml Liquid, 200 MG PO Q4H PRN for COUGH, #1 BOTTLE Prov:ZORAIDA DICKEY S. 01/31/19 Reported Medications Insulin Glargine,Hum.rec.anlog (Basaglar Kwikpen U-100) 100 Unit/1 Ml Insuln.pen, 16 UNIT SC DAILY, EA 03/26/18 Metoprolol Succinate* (Toprol XL*) 25 Mg Tab.sr.24h, 25 MG PO DAILY, #30 TAB 03/26/18 Atorvastatin Calcium (Atorvastatin Calcium) 10 Mg Tablet, 10 MG PO QHS, #30 TAB 03/26/18 Metformin* (Glucophage*) 850 Mg Tablet, 850 MG PO BID WITH MEALS, #30 TAB 03/26/18 Allergies Allergies: Coded Allergies: No Known Allergy (Unverified , 08/07/17) PMhx/Soc History of Surgery: Yes (cholecystectomy, hysterectomy) Anesthesia Reaction: No Hx Neurological Disorder: No Hx Respiratory Disorders: No Hx Cardiac Disorders: Yes (htn, hypercholesterolemia) Hx Psychiatric Problems: No Hx Miscellaneous Medical Probl: Yes Hx Alcohol Use: No Hx Substance Use: No Hx Tobacco Use: No Smoking Status: Never smoker Physical Exam Vitals Vital Signs Date Temp Pulse Resp B/P (MAP) Pulse Ox O2 O2 Flow FiO2 Time Delivery Rate 05/02/19 99.7 89 18 130/72 99 Room Air 19:47 (91) 05/02/19 99.7 106 18 136/69 99 19:20 (91) Physical Exam Const: No acute distress Head: Atraumatic Eyes: Normal Conjunctiva ENT: Normal External Ears, Nose and Mouth. Neck: Full range of motion. No meningismus. Resp: Clear to auscultation bilaterally Cardio: Regular rate and rhythm, no murmurs Abd: Soft, non tender, non distended. Normal bowel sounds Skin: No petechiae or rashes Back: No midline or flank tenderness Ext: Mild bruising noted over the posterior aspect of the left ankle along with the forefoot. Minimal swelling noted. Normal pulses. Normal sensation. Neur: Awake and alert Psych: Normal Mood and Affect Result Diagram: 05/02/19200605/02/192006 Results 24 hrs Laboratory Tests Test 05/02/19 20:07 White Blood Count 10.1 10^3/ul Red Blood Count 4.31 10^6/ul Hemoglobin 13.0 g/dl Hematocrit 39.6 % Mean Corpuscular Volume 91.9 fl Mean Corpuscular Hemoglobin 30.2 pg Mean Corpuscular Hemoglobin Concent 32.8 g/dl Red Cell Distribution Width 13.4 % Platelet Count 262 10^3/UL Mean Platelet Volume 9.4 fl Immature Granulocytes % 0.300 % Neutrophils % 73.4 % Lymphocytes % 19.4 % Monocytes % 5.7 % Eosinophils % 0.9 % Basophils % 0.3 % Nucleated Red Blood Cells % 0.0 /100WBC Immature Granulocytes # 0.030 10^3/ul Neutrophils # 7.4 10^3/ul Lymphocytes # 2.0 10^3/ul Monocytes # 0.6 10^3/ul Eosinophils # 0.1 10^3/ul Basophils # 0.0 10^3/ul Nucleated Red Blood Cells # 0.0 10^3/ul Prothrombin Time 12.3 Sec Prothrombin Time Ratio 1.0 INR International Normalized Ratio 0.90 Activated Partial Thromboplast Time 26.6 Sec Sodium Level 137 mmol/L Potassium Level 5.0 mmol/L Chloride Level 100 mmol/L Carbon Dioxide Level 27 mmol/L Anion Gap 10 Blood Urea Nitrogen 22 mg/dl Creatinine 0.81 mg/dl Est Glomerular Filtrat Rate mL/min mL/min Glucose Level 201 mg/dl Calcium Level 9.8 mg/dl Total Bilirubin 0.6 mg/dl Direct Bilirubin 0.00 mg/dl Indirect Bilirubin 0.6 mg/dl Aspartate Amino Transf (AST/SGOT) 35 IU/L Alanine Aminotransferase (ALT/SGPT) 23 IU/L Alkaline Phosphatase 48 IU/L Total Protein 8.2 g/dl Albumin 4.6 g/dl Globulin 3.60 g/dl Albumin/Globulin Ratio 1.27 Current Medications Medications Dose Sig/Krystal Start Time Status Last (Trade) Ordered Route PRN Stop Time Admin Dose Reason Admin 1 tab ONCE ONCE 05/02/19 DC 05/02/19 Acetaminophen PO 22:00 05/02/19 21:48 / 22:01 Hydrocodone Bitart ([place] (5/325)) Procedures/MDM Splint Assessment: Neurovascularly intact post splint placement with good fit. X-ray Ankle 3V Interpreted by me: Bones: Distal fibular fracture Joints: No dislocation Medical decision making: Very pleasant patient comes in essentially with distal fibula fracture. No evidence of loss of consciousness. She is well-appearing. She is been placed in a splint with neurovascular capabilities maintained pre- and post splint uppercase patient be given follow-up with outpatient orthopedics . Follow-up with PCP and Ortho as an outpatient Departure Diagnosis: Primary Impression: Fall Encounter type: initial encounter Qualified Codes: W19.XXXA - Unspecified fall, initial encounter Additional Impression: Ankle fracture Encounter type: initial encounter Fracture type: closed Laterality: left Qualified Codes: S82.892A - Other fracture of left lower leg, initial encounter for closed fracture Condition: Stable Patient Instructions: Treating Ankle Fractures Referrals: BHARATHI BECKWITH MD, DANIEL S. May 02, 2019 22:26
[2019-05-02 22:58] VITALS: BP 125/72; PULSE 76; RESP 16
== END 2019-05-02 23:01 | disposition home or self-care (01) ==
LOC: E/R 19:19
DX: S82.892A Other fracture of left lower leg, initial encounter for closed fracture (principal); I10 Essential (primary) hypertension; R51 Headache; W07.XXXA Fall from chair, initial encounter; Y92.9 Unspecified place or not applicable; Z79.4 Long term (current) use of insulin
CPT/HCPCS: 29515; 36415; 70450; 73610; 80053; 85025; 85610; 85730; Z7502; Z7610